=== PATIENT | male | born 1955 | race Caucasian/White ===

== ENCOUNTER 2018-11-23 08:10 | Emergency (ER) | payer SELFPAY ==
[2018-11-23] MEDS: OLANZapine ODT 10 MG TAB PO (08:15)
--- NOTE | 2018-11-23 08:18 | ED_ITS ---
HPI - Psych General Chief Complaint: Psychiatric Symptoms Stated Complaint: Mental Evaluation Time Seen by Provider: 11/23/18 08:14 Source: patient and police Mode of arrival: other (police) History of Present Illness HPI Narrative: This is a 63-year-old male comes to the emergency department with concern for psychosis. Patient comes with the police department. He is known to the ER as well as the police department. He is often strange in his affect but today is very different. He has very tangential thought. He was over by 1 the local school trying to direct traffic and then at 1 point was lying in the of road. He has not expressed any suicidal ideation to the police or myself he has a lot of difficulty answering questions and seems to be having exacerbation his mental health issues. Patient can tell me that he is very ramped up, at this time he has been cooperative with police although he did come in handcuffs. Patient has been redirectable so far but does not seem safe to make his own decisions at this time. Related Data Home Medications Medication Instructions Recorded Confirmed [MULTIVITAMIN] #0 04/10/11 GLUC OTOOLE DIPO CH/LARON OTOOLE/C/GISSELLE 1 cap PO QDAY #0 06/24/12 (Glucosamine-Chondroitin Capsul) glutamine [L-Glutamine] 500 mg PO QDAY #0 07/13/17 melatonin 3 mg PO HS #0 07/13/17 vitamin B complex [B 1 tab PO QDAY #0 07/13/17 Complex-Vitamin B12] Previous Rx's Medication Instructions Recorded NALTREXONE HCL (REVIA) 50 mg PO QDAY #30 tab 07/13/17 carvedilol [Coreg] 12.5 mg PO BID #60 tab 12/24/17 losartan [Cozaar] 50 mg PO QDAY #30 tab 12/24/17 pravastatin 40 mg PO HS #90 tab 02/15/18 bupropion HCl SR 150 mg tablet,12 150 mg PO BID #14 tab 08/05/18 hr sustained-release Allergies Allergy/AdvReac Type Severity Reaction Status Date / Time No Known Drug Allergies Allergy Verified 11/23/18 08:38 [facility] Surgical History Status post hernia repair Exam Narrative Exam Narrative: GENERAL: Alert and oriented x two, well-nourished, slightly disheveled male in moderate distress. HEENT: Head normocephalic, atraumatic, EOMI, pupils reactive, face symmetric, moist mucous membranes NECK: Supple, full range of motion CARDIOVASCULAR: Regular rate and rhythm without murmurs, rubs or gallops. RESPIRATORY: Breath sounds equal bilaterally, no wheezes rales or rhonchi. ABDOMEN: Soft, nontender. Normoactive bowel sounds all 4 quadrants. No guarding or rebound, rigidity, no mass : No CVA tenderness EXTREMITIES: Normal range of motion, no clubbing or edema. Neurovascularly intact NEUROLOGICAL: Cranial nerves II through XII grossly intact. Moving all extremities. Normal gait. No tremor. SKIN: Warm, dry, no petechiae, no rashes or lesions. PSYCH: Patient has very pressured speech, tangential. Initial Vital Signs Initial Vital Signs: Vital Signs Temperature 98.9 F 11/23/18 08:38 Pulse Rate 107 H 11/23/18 08:38 Respiratory Rate 22 11/23/18 08:38 Blood Pressure 169/102 H 11/23/18 08:38 Pulse Oximetry 99 11/23/18 08:38 Course Orders Ordered: ED Orders 11/23/18 17:10 Ictotest Urine Stat Urine Culture Stat Urine Drug Screen, Rapid Stat Urine Microscopic Stat 11/23/18 18:57 Urine Culture Stat Discontinued Medications Haloperidol (Haldol) 5 mg IM NOW ONE Stop: 11/23/18 08:54 Last Admin: 11/23/18 09:07 Dose: 5 mg Lorazepam (Ativan) 2 mg IM NOW ONE Stop: 11/23/18 08:54 Last Admin: 11/23/18 09:07 Dose: 2 mg Olanzapine (Zyprexa Zydis) 10 mg PO NOW ONE Stop: 11/23/18 08:15 Last Admin: 11/23/18 08:15 Dose: 10 mg Vital Signs - 8 hr 11/23/18 18:59 Respiratory Rate 13 MDM - Psych Lab Data Attestation: I reviewed the patient's lab results. Result diagrams: 11/23/18 Unknown 11/23/18 Unknown Lab Results 11/23/18 11/23/18 11/23/18 Range/Units 17:10 17:10 17:10 WBC (4.5-11.0) X10^3/uL RBC (4.5-5.9) X10^6/uL Hgb (13.5-17.5) g/dL Hct (41-53) % MCV (80-100) fL MCH (26-34) PG MCHC (30-36) % RDW (11.6-14.8) % Plt Count (150-400) X10^3/uL Neut % (Auto) (50-75) % Lymph % (Auto) (25-40) % Sebastian % (Auto) (3-14) % Eos % (Auto) (2-4) % Baso % (Auto) (0-2) % Neut # (Auto) (7402-1026) /uL Sodium (137-145) mmol/L Potassium (3.4-5.1) mmol/L Chloride (98-107) mmol/L Carbon Dioxide (22-32) mmol/L BUN (9-20) mg/dL Creatinine (0.66-1.25) mg/dL Estimated GFR (>60) mL/min BUN/Creatinine Ratio (6-22) Glucose (80-110) mg/dL Calcium (8.4-10.2) mg/dL Total Bilirubin (0.2-1.3) mg/dL AST (17-59) IU/L ALT (21-72) IU/L Alkaline Phosphatase (38-126) U/L Total Protein (6.3-8.2) g/dL Albumin (3.5-5.0) g/dL Globulin (1.7-4.1) g/dL Albumin/Globulin Ratio (1.0-2.8) TSH (0.47-4.68) uIU/mL Urine Ictotest Negative (Negative) Urine RBC None seen (0-5/HPF) Urine WBC 1-5/hpf (0-5/HPF) Ur Squamous Epith Cells 0-1 /hpf Calcium Oxalate Crystal Occasional H (None) Amorphous Sediment 2+ Urine Bacteria Few (2-10) H (None) Urine Mucus 2+ H (Negative) Ur Culture Indicated? Specimen cultured Micro UA Comment Not Reportable Urine Opiates Screen Negative (Negative) Ur Oxycodone Screen Negative (Negative) Urine Methadone Screen Negative (Negative) Ur Barbiturates Screen Negative (Negative) U Tricyclic Antidepress Negative (Negative) Ur Phencyclidine Scrn Negative (Negative) Ur Amphetamines Screen Negative (Negative) U Methamphetamines Scrn Negative (Negative) Ur MDMA Scrn (Ecstasy) Negative (Negative) U Benzodiazepines Scrn Positive H (Negative) Urine Cocaine Screen Negative (Negative) U Marijuana (THC) Screen Negative (Negative) Ethyl Alcohol mg/dL 11/23/18 11/23/18 11/23/18 Range/Units Unknown Unknown Unknown WBC 5.6 (4.5-11.0) X10^3/uL RBC 4.68 (4.5-5.9) X10^6/uL Hgb 13.9 (13.5-17.5) g/dL Hct 41.6 (41-53) % MCV 88.9 (80-100) fL MCH 29.7 (26-34) PG MCHC 33.4 (30-36) % RDW 13.9 (11.6-14.8) % Plt Count 240 (150-400) X10^3/uL Neut % (Auto) 73.0 (50-75) % Lymph % (Auto) 15.7 L (25-40) % Sebastian % (Auto) 9.6 (3-14) % Eos % (Auto) 0.8 L (2-4) % Baso % (Auto) 0.9 (0-2) % Neut # (Auto) 4100 (9273-9547) /uL Sodium 141 (137-145) mmol/L Potassium 3.9 (3.4-5.1) mmol/L Chloride 106 (98-107) mmol/L Carbon Dioxide 23 (22-32) mmol/L BUN 18 (9-20) mg/dL Creatinine 0.70 (0.66-1.25) mg/dL Estimated GFR > 60.0 (>60) mL/min BUN/Creatinine Ratio 25.7 H (6-22) Glucose 122 H (80-110) mg/dL Calcium 9.3 (8.4-10.2) mg/dL Total Bilirubin 0.7 (0.2-1.3) mg/dL AST 41 (17-59) IU/L ALT 43 (21-72) IU/L Alkaline Phosphatase 66 (38-126) U/L Total Protein 7.5 (6.3-8.2) g/dL Albumin 4.6 (3.5-5.0) g/dL Globulin 2.9 (1.7-4.1) g/dL Albumin/Globulin Ratio 1.6 (1.0-2.8) TSH 1.28 (0.47-4.68) uIU/mL Urine Ictotest (Negative) Urine RBC (0-5/HPF) Urine WBC (0-5/HPF) Ur Squamous Epith Cells Calcium Oxalate Crystal (None) Amorphous Sediment Urine Bacteria (None) Urine Mucus (Negative) Ur Culture Indicated? Micro UA Comment Urine Opiates Screen (Negative) Ur Oxycodone Screen (Negative) Urine Methadone Screen (Negative) Ur Barbiturates Screen (Negative) U Tricyclic Antidepress (Negative) Ur Phencyclidine Scrn (Negative) Ur Amphetamines Screen (Negative) U Methamphetamines Scrn (Negative) Ur MDMA Scrn (Ecstasy) (Negative) U Benzodiazepines Scrn (Negative) Urine Cocaine Screen (Negative) U Marijuana (THC) Screen (Negative) Ethyl Alcohol < 10 mg/dL Urine Dip Bedside Urine Glucose Negative Bedside Urine Bilirubin + 1 Bedside Urine Ketone ++ 40 Urine Specific Blevins 1.025 Bedside Urine Occult Blood - Negative Bedside Urine pH 6.5 Bedside Urine Protein + 30 Bedside Urine Urobilinogen 1+ 2mg Bedside Urine Nitrite - Negative Bedside Urine Leukocytes - Negative Esterase MDM Narrative Medical decision making narrative: Patient has a history of possible bipolar, he has very tangential speech. He is not making any suicidal threats. Patient has not made any aggressive over to his towards the staff but he was found lying in the street and is generally not able to make decisions that show that he is competent or able to keep himself safe at this time. Was given Zyprexa which after period of time was not particularly helpful and was then given Haldol and Ativan IM. Patient has been quite sleepy but awakens then. Patient is more awake around 5pm, his thoughts are more organized but he still appears to have some faheem or very tangential thought process. He seems to not understand exactly where he, he does not seem to be able to make appropriate decisions to maintain his personal safety. Urine shows benzo's but urine was collected several hours after administration of Ativan. Alcohol is negative. Lab work shows no major abnormalities. Patient has some bacteria but no nitrates or leukocyte esterase. Urine was sent for urine culture but my suspicion for UA causing altered mental status or delirium is very, very low. [facility] they are evaluating patient, I discussed I feel he needs detainment at this time. Patient signed out to Dr. Monterroso for final disposition. Discharge Plan Departure Prescriptions: No Action [MULTIVITAMIN] Qty: 0 RF: 0 GLUC OTOOLE DIPO CH/LARON OTOOLE/C/GISSELLE (Glucosamine-Chondroitin Capsul) 1 cap PO QDAY Qty: 0 RF: 0 melatonin 3 MG tablet 3 mg PO HS Qty: 0 RF: 0 glutamine [L-Glutamine] 500 MG capsule 500 mg PO QDAY Qty: 0 RF: 0 vitamin B complex [B Complex-Vitamin B12] 1 EACH tablet 1 tab PO QDAY Qty: 0 RF: 0 NALTREXONE HCL (REVIA) 50 mg PO QDAY Qty: 30 RF: 0 losartan [Cozaar] 50 MG tablet 50 mg PO QDAY Qty: 30 RF: 6 carvedilol [Coreg] 12.5 MG tablet 12.5 mg PO BID Qty: 60 RF: 6 pravastatin 40 MG tablet 40 mg PO HS Qty: 90 RF: 1 bupropion HCl [Wellbutrin SR] 150 mg tablet extended release 12 hr 150 mg PO BID Qty: 14 RF: 0
[2018-11-23 08:38] VITALS: BP 169/102; PULSE 107; RESP 22; TEMP 37.2; O2SAT 99; BMI 30.2
[2018-11-23 08:41] LABS: Add Manual Diff / Slide Review NO; Basophils Percent Auto 0.9 % (0-2); Eosinophils Percent Auto 0.8 % (2-4); Hematocrit 41.6 % (41-53); Hemoglobin 13.9 g/dL (13.5-17.5); Lymphocytes Percent Auto 15.7 % (25-40); Mean Corpuscular HGB Conc 33.4 % (30-36); Mean Corpuscular Hemoglobin 29.7 PG (26-34); Mean Corpuscular Volume 88.9 fL (80-100); Monocytes Percent Auto 9.6 % (3-14); Neutrophils Absolute Auto 4100 /uL (1500-7000); Platelet Count 240 X10^3/uL (150-400); Red Blood Cell Count 4.68 X10^6/uL (4.5-5.9); Red Cell Distribution Width 13.9 % (11.6-14.8); White Blood Cell Count 5.6 X10^3/uL (4.5-11.0)
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
[2018-11-23 08:53] LABS: Alanine Aminotransferase 43 IU/L (21-72); Albumin 4.6 g/dL (3.5-5.0); Albumin Globulin Ratio 1.6 (1.0-2.8); Alkaline Phosphatase 66 U/L (38-126); Aspartate Aminotransferase 41 IU/L (17-59); BUN Creatinine Ratio 25.7 (6-22); Bilirubin Total 0.7 mg/dL (0.2-1.3); Blood Urea Nitrogen 18 mg/dL (9-20); Calcium 9.3 mg/dL (8.4-10.2); Carbon Dioxide 23 mmol/L (22-32); Chloride 106 mmol/L (98-107); Estimated Glomerular Filt Rate > 60.0 mL/min (>60); Ethanol (ETOH) < 10 mg/dL; Globulin 2.9 g/dL (1.7-4.1); Glucose 122 mg/dL (80-110); HEMOLYSIS < 15 (0-50); Potassium 3.9 mmol/L (3.4-5.1); Sodium 141 mmol/L (137-145); Total Protein 7.5 g/dL (6.3-8.2)
[2018-11-23] MEDS: HALOPERIDOL 5 MG/ML VIAL IM (09:07)
[2018-11-23] MEDS: LORazepam 2 MG/ML SYRINGE IM (09:07)
--- NOTE | 2018-11-23 09:31 | PC.NURSE ---
0850: Talking about [place] people request a second language tutor. Also about how the immigrants came to [place]. 0855: Thinks things are going off under the gurney, is inspecting because [employer] requested that he search the gurney. 0900 Believes people should have their constitutional rights read to them even the dark skinned folks that built [place]. [employer] told him to pass the message to others. 0905: Talks about Germans and how they put things in our bodies. Talking/rambling in mumbles speaking the language between him and [employer]. The Germans are also vomiting stuff in us. They hold hands in dance with pokes of blood to unite each other. 0910: Teaching others the language from [employer] so he can communicate the messages that he is receiving. 0915: He plans to cover [place] with a bowl to make sure that everyone is safe and they are not hunted by others. Aspen bairon harper is what they will be singing on the islands. 0920: He believes that people are listening to everyone through is hearing aids. We need to be careful what information we give because they can hear it. 0925: Pt is asleep.
[2018-11-23 09:37] LABS: Thyroid Stimulating Hormone 1.28 uIU/mL (0.47-4.68)
[2018-11-23 10:45] VITALS: BP 108/67; PULSE 60; RESP 17; O2SAT 98
--- NOTE | 2018-11-23 17:00 | PC.NURSE ---
Patient is waking up. He is following commands. Door is open. He states he wants to sleep. Asked him to urinate, he states he cannot right now. Laid back down and fell asleep. Provider aware.
--- NOTE | 2018-11-23 17:13 | PC.NURSE ---
Patient awakening. He got up and gave a urine sample. Asking for food and water. Walking around room. Doctor notified.
[2018-11-23 17:17] LABS: RBC Urine None Seen (0-5/HPF)
[2018-11-23 17:26] LABS: Urine Tetrahydrocannabinol Negative (Negative)
[2018-11-23 17:27] LABS: Ictotest Urine Negative (Negative); Urine Amphetamines Negative (Negative); Urine Barbiturates Negative (Negative); Urine Benzodiazepines Positive (Negative); Urine Cocaine Negative (Negative); Urine MDMA Negative (Negative); Urine Methadone Negative (Negative); Urine Methamphetamines Negative (Negative); Urine Morphine/Opi cutoff 2000 Negative (Negative); Urine Oxycodone Negative (Negative); Urine Phencyclidine Negative (Negative); Urine Tricyclic Antidepressant Negative (Negative)
[2018-11-23 17:31] LABS: Squamous Epithelial Cell Urine 0-1 /HPF; WBC Urine 1-5/HPF (0-5/HPF)
--- NOTE | 2018-11-23 17:31 | PC.NURSE ---
Pt saying he wants to leave. Gave him a tray from dietary. He is sitting on stretcher eating food. Door is open.
[2018-11-23 17:32] LABS: Amorphous Sediment Urine 2+; Bacteria Urine Few (2-10); Calcium Oxalate Crystals Urine Occasional; Culture Indicated Urine Specimen Cultured; Mucus Urine 2+ (Negative)
--- NOTE | 2018-11-23 17:36 | PC.NURSE ---
Patient was brought a dinner tray and is sitting on side of bed eating
--- NOTE | 2018-11-23 17:56 | PC.NURSE ---
Patient resting on bed after eating dinner
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
--- NOTE | 2018-11-23 18:47 | PC.NURSE ---
Patient resting quietly on bed in room
[2018-11-23 18:59] VITALS: RESP 13
--- NOTE | 2018-11-23 18:59 | PC.NURSE ---
Patient refused vital signs
--- NOTE | 2018-11-23 20:09 | PC.NURSE ---
late entry: @ 1950 pt became verbally aggressive and yelling at [facility]. Pt threw his meal tray against the wall. Swearing at staff. Tray removed from room. I asked pt to stop swearing and yelling. He told me to 'get the f*ck out. More calm when noone is in the room. DCR aware and continues eval.
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
== END 2018-11-23 23:16 | disposition short-term general hospital (02) ==
PROVIDERS: Emergency Medicine; Emergency Provider Emergency Medicine; Family Provider Family Medicine
DX: F29 Unspecified psychosis not due to a substance or known physiological condition (principal)
CPT/HCPCS: 80053; 80305; 80320; 81003; 81015; 84443; 85025; 87086; 96372; 99285; J1630; J2060

== ENCOUNTER → 2019-11-29 08:01 | Outpatient (CLI) | payer OTHER, SELFPAY ==
[2019-11-29 09:37] LABS: Cholesterol 151 mg/dL (140-199); Glucose Promotional 91 mg/dL (80-110); HDL Cholesterol 46 mg/dL (40-60); LDL Cholesterol Calculated 85 mg/dL (<100); Triglycerides 99 mg/dL (35-150)
== END ==
PROVIDERS: Family Provider Family Medicine; PCP Family Medicine
DX: Z13.9 Encounter for screening, unspecified (principal)
CPT/HCPCS: 80061; 82947

== ENCOUNTER → 2020-01-23 07:25 | Outpatient (CLI) | payer OTHER, SELFPAY ==
[2020-01-23 07:52] LABS: Add Manual Diff / Slide Review NO; Basophils Absolute Auto 100 /uL (0-100); Basophils Percent Auto 1.3 % (0-2); Eosinophils Absolute Auto 200 /uL (0-450); Hematocrit 42.4 % (41-53); Hemoglobin 14.4 g/dL (13.5-17.5); Lymphocytes Absolute Auto 1000 /uL (1100-4500); Lymphocytes Percent Auto 20.3 % (25-40); Mean Corpuscular HGB Conc 34.1 % (30-36); Mean Corpuscular Hemoglobin 29.7 PG (26-34); Mean Corpuscular Volume 87.1 fL (80-100); Monocytes Absolute Auto 700 /uL (0-900); Monocytes Percent Auto 14.1 % (3-14); Neutrophils Absolute Auto 3100 /uL (1500-7000); Neutrophils Percent Auto 60.3 % (50-75); Platelet Count 251 X10^3/uL (150-400); Red Blood Cell Count 4.86 X10^6/uL (4.5-5.9); Red Cell Distribution Width 13.5 % (11.6-14.8); White Blood Cell Count 5.1 X10^3/uL (4.5-11.0)
== END ==
PROVIDERS: Family Provider Family Medicine; PCP Family Medicine; Referring Provider Family Medicine; Visit Provider Family Medicine
DX: I10 Essential (primary) hypertension (principal)
CPT/HCPCS: 36415; 84153; 84443; 85025

== ENCOUNTER → 2020-08-03 09:04 | Outpatient (CLI) | payer OTHER, SELFPAY ==
[2020-08-05 15:28] LABS: COVID19 Sendout Not Detected (Not Detect)
== END ==
PROVIDERS: Family Provider Family Medicine; PCP Family Medicine; Visit Provider Physician Assistant
DX: Z11.59 Encounter for screening for other viral diseases (principal)
CPT/HCPCS: 87635

== ENCOUNTER 2020-08-06 06:59 | Day surgery (SDC) | payer OTHER, SELFPAY ==
--- NOTE | 2020-08-06 | PATH_ITS ---
[facility] Accession Number: [id number] . 01 Material submitted: . PART A: gastrointestinal site - STOMACH BIOPSY PART B: esophagus - GE JUNCTION . 01 Clinical history: . SDC . 02 Diagnosis: A. Stomach, Biopsy: Antral mucosa with mild chronic gastritis. Negative for Helicobacter by immunohistochemistry. Negative for intestinal metaplasia. Negative for dysplasia and malignancy. . B. Gastroesophageal Junction, Biopsy: Columnar mucosa with no diagnostic abnormality. Negative for intestinal metaplasia by alcian blue stain. Negative for dysplasia and malignancy. [facility] 08/13/2020 1514 Local . 02 Electronically signed: . Stephanie Crane MD, Pathologist NPI- [id number] . 01 Gross description: . Part A: STOMACH BIOPSY: Received in formalin are 2 fragment(s) of rojas, soft tissue measuring 0.2 x 0.2 x 0.2 cm to 0.3 x 0.2 x 0.2 cm submitted entirely in 1 cassette(s) Part B: GE JUNCTION: Received in formalin are 4 fragment(s) of rojas, soft tissue measuring 0.1 x 0.1 x 0.1 cm to 0.3 x 0.1 x 0.1 cm submitted entirely in 1 cassette(s) /DEVIKA 08/07/2020 2358 Local . 02 Microscopic: . A. An immunohistochemical stain was performed to evaluate for Helicobacter organisms and is negative. The control stain showed appropriate reactivity. . B. An alcian blue stain was performed to evaluate for intestinal metaplasia and is negative. The control stain showed appropriate reactivity. . * This test was developed and its performance characteristics determined by [facility] [employer]. It has not been cleared or approved by the U.S. Food and Drug Administration. The FDA has determined that such clearance or approval is not necessary. This test is used for clinical purposes. It should not be regarded as investigational or for research. . 02 Pathologist provided ICD-10: Z12.11 . 02 CPT . 624069, 241552, X11547, 648038 Performed at: 01 [facility] [address] [id number] MD Kodi Echeverria MD Phone: [phone] Performed at: 02 [place] [id number] [place] [id number] MD Stephanie Crane MD Phone: [phone]
[2020-08-06] MEDS: LACTATED RINGERS 1,000 ML 42 ML IV (07:20)
[2020-08-06 07:24] VITALS: BP 120/77; PULSE 78; RESP 16; TEMP 36.2; O2SAT 98; BMI 22.0
[2020-08-06] MEDS: MINERAL OIL 1 EACH ENEMA PR (07:45)
--- NOTE | 2020-08-06 07:58 | SUR.PREOP ---
Pt arrived to [facility] on time, spent 15 minutes in BR changing, asked to try and go to the BR and not flush as pt unsure of what his output was, pt could not go. Dr. Macario made aware, asked for enema to be given. Enema given see EMAR. output after was cloudy yellow, with occasional yellow flecks. Pt refused ordered Acetamenophen, he dose not use tylenol due to him hearing it causes liver issues, pt not wanting further discussion on med.
--- NOTE | 2020-08-06 08:07 | PM.PREOP ---
Pre-operative Note COVID-19 COVID-19 status: Negative Result date/Date tested (Pos, Neg/Pending): 08/04/20 Interval Note History & Physical reviewed/Exam performed by Physician: Yes Changes to H&P: No
[2020-08-06] MEDS: CEFAZOLIN 2 GM/100 ML FROZ.PIGGY IV (08:51)
--- NOTE | 2020-08-06 09:09 | SUR.OPER ---
Supine on padded OR bed, head on pillow, arms secured on padded arm boards at <90 degrees abduction, legs uncrossed, safety belt at thigh, tape over blanket over lower legs for EGD and Left inguinal hernia repair. Supine as stated, but with out thigh safety belt and tape at lower legs for colonoscopy. Kamilah Bustamante RN supported legs during the procedure per Dr. Macario.
[2020-08-06] MEDS: BUPIVACAINE 0.5% (PF) VIAL 30 ML INJ (09:15)
[2020-08-06 10:17] VITALS: BP 147/104; PULSE 76; RESP 25; TEMP 37; O2SAT 95
[2020-08-06 10:22] VITALS: BP 136/100; PULSE 67; RESP 14; O2SAT 99
[2020-08-06 10:26] VITALS: BP 134/101; PULSE 65; RESP 10; O2SAT 98
--- NOTE | 2020-08-06 10:31 | SUR.PHASEI ---
Pt awoke shortly after arrival. Awake, talking loudly, sometimes inappropriately. Denies pain, nausea, or light-headedness. Drank juice, tolerated well.
--- NOTE | 2020-08-06 10:32 | P.OP.ENDO_ITS ---
Operative Date/Time/Diagnoses Date of procedure: 08/06/20 Time of procedure: 10:34 Pre-op diagnosis: History of Flood's esophagus. Due for screening colonoscopy. Having general anesthesia for an inguinal hernia. Thus as the patient has multiple significant comorbidities this will be done under general anesthesia in its entirety. Post-op diagnosis: same Procedure & Clinicians Study performed: Colonoscopy. EGD with cold biopsy Same procedure as scheduled: Yes Indications: Flood's esophagus. Overdue for surveillance. Overdue for s creening colonoscopy which was over 10 years ago. Surgeon: Jude Macario Procedure Notes SCOAP/Timeout: Performed Procedure in detail: The patient underwent general endotracheal anesthesia due to the fact that he has some emotional issues as well as medical ones and will have to have general anesthesia for an inguinal hernia repair. A bite block was inserted and the scope was advanced through it into the esophagus. The esophagus was unremarkable. GE junction was noted at 41 cm from the incisors. There was evidence of Flood's esophagus in that region.. The stomach insufflated well. There were no lesions seen in the body, or at the incisura. However there was some redness in the pyloric area and a flattening/thinning appearance of the mucosa The pyloric channel was widely patent. The duodenum was unremarkable to the 4th part. The scope was brought back into the stomach and retroflexed. The proximal stomach normal in appearance. Biopsies were taken of the reddened antrum. The scope was straightened and brought out through the esophagus again. Biopsies were taken at the GE junction. No other lesions were seen. The scope was removed and the patient tolerated the procedure well. Colonoscope was then inserted. Digital exam was unremarkable except for some visible hemorrhoids.. The scope was inserted and advanced through the rectum into the sigmoid, descending, transverse, and ascending colon. No lesions were seen.. The cecum was reached identified by the ileocecal valve and the appendiceal opening. The ileocecal valve was briefly cannulated. The terminal ileum was normal in appearance. The scope was gradually brought out. No Polyps were found. The scope ultimately was retroflexed in the rectum. The appearance was remarkable for internal hemorrhoids.. The scope was removed and the patient tolerated the procedure well. Scope withdrawal time: 7.75 minutes Sedation minutes: 0 (Done under general anesthesia) Findings: Flood's esophagus and gastritis (Possible.) Specimen(s): other (Gastric antrum biopsies and GE junction biopsies) Complications: none Post-procedure Recommendations: Colonscopy in 10 years and EGD in 3 years Follow up: as needed Disposition: PACU
--- NOTE | 2020-08-06 10:38 | SUR.PHASEI ---
Pt put in his hearing aids upon waking up
--- NOTE | 2020-08-06 10:42 | P.OP_ITS ---
Operative Date/Time/Diagnoses Date of procedure: 08/06/20 Time of procedure: 10:42 Pre-op diagnosis: Left inguinal hernia reducible Post-op diagnosis: same (Direct) Procedure & Clinicians Procedure: Repair of hernia with plug and patch technique Same procedure as scheduled: Yes Indications: Symptomatic left inguinal hernia Surgeon: Jude Macario Click Yes if Unassisted: Yes Anesthesia Type: General Operative Notes Findings: Large direct hernia. Closure Type: primary Specimen(s): none sent Prosthetic devices, grafts, tissues, transplants, or devices: Mesh Estimated Blood Loss (mL): 10 Blood products transfused: none Procedure in detail: The patient was placed supine on the operating room table and underwent general LMA anesthesia. He was prepped and draped in the usual fashion. A transverse incision was made overlying the left internal ring and carried down to the level of the external oblique. The external oblique was opened parallel with its fibers through the external ring. The cord structures were elevated. The cremaster was opened proximally and search made for an indirect sac. None was found. The floor was examined and was found to be quite weakened and bulging consistent with a direct hernia. The floor was opened 10 the preperitoneal fat reduced from it. A large plug was placed in the defect and tacked into place with interrupted at the bone suture. The attenuated floor a portion was removed and the floor was closed by suturing transversalis to the ileo pubic tract.. A patch was placed across the floor and tacked at the pubic tubercle, the posterior lamella of the anterior rectus sheath, the ilioinguinal ligament, and superior lateral to the cord. Sutures of 0 Tycron were used to secure the mesh. The external oblique was closed with a running 3 0 Vicryl. T he subcu was closed with interrupted 3 0 Vicryl. The skin was closed with a running 4 0 Vicryl subcuticular stitch and Steri-Strips. Dressing was applied, the patient was awakened, and the patient was taken to the recovery area in good condition. Local anesthetic was infiltrated at the beginning and end of the procedure. Complications: none Post-operative Condition: stable Disposition: PACU Plan for aftercare: Follow-up in the office
[2020-08-06 11:00] VITALS: BP 131/89; PULSE 66; RESP 18; TEMP 36.6; O2SAT 97
--- NOTE | 2020-08-06 14:17 | SUR.PHASEII ---
Late entry: Pt ready to go, friend called, available for picker / packer, assisted pt to dress, pt up to BR steady when up. Left unit in stable condition. Voiced an understanding of d/c instructions.
--- NOTE | 2020-08-06 17:11 | SUR.OPER ---
Mesh implant: Lot [id number] REF #[id number] EXP DATE 10/13/24 BARD MESH PERFIX PLUG
== END 2020-08-06 11:15 | disposition home or self-care (01) ==
PROVIDERS: Family Provider Family Medicine; PCP Family Medicine; Referring Provider Specialist; Visit Provider Specialist
PROC: 0DJ08ZZ Inspection of Upper Intestinal Tract, Via Natural or Artificial Opening Endoscopic (ICD-10-PCS; CPT 43235; principal; 2020-08-06 07:45)
PROC: 0DJD8ZZ Inspection of Lower Intestinal Tract, Via Natural or Artificial Opening Endoscopic (ICD-10-PCS; CPT 45378; 2020-08-06 07:45)
PROC: (CPT 49505; 2020-08-06 07:45)
DX: Z12.11 Encounter for screening for malignant neoplasm of colon (principal); K40.90 Unilateral inguinal hernia, without obstruction or gangrene, not specified as recurrent; I25.10 Atherosclerotic heart disease of native coronary artery without angina pectoris; E78.5 Hyperlipidemia, unspecified; I10 Essential (primary) hypertension; K22.70 Barrett's esophagus without dysplasia
CPT/HCPCS: 49505; 43239; 45378; C1781; J0330; J0690; J1100; J1885; J2250; J2405; J2704; J3010

== ENCOUNTER 2020-11-24 23:49 | Emergency (ER) | payer OTHER, SELFPAY ==
--- NOTE | 2020-11-25 00:04 | ED_ITS ---
HPI - Extremity Problem General Chief complaint: Extremity Problem,Nontraumatic Stated complaint: Right leg pain x1 day Time Seen by Provider: 11/24/20 23:50 Source: patient Mode of arrival: Ambulatory Limitations: no limitations History of Present Illness HPI Narrative: 65-year-old male, former smoker with history of coronary artery disease presents by himself with a chief complaint of very brief episodes of sharp ?lightning like ?episodes of pain in his right posterior knee over the course of the day. He states that he has had multiple very brief episodes of sharp pain that last a fraction of his 2nd. He states there is no obvious provocation, palliation or radiation of this discomfort. He denies any obvious injury or history of the same. He denies any fever, chills nor nausea or vomiting. He states that he rode his bike rather vigorously yesterday in lots of when but otherwise has been in his normal level of activity, diet and other. He denies recent travel, injury, history of clot or cancer MD Complaint: extremity pain Onset (ago): hour(s) Pain Consistency: intermittent and now resolved Location: right and lower extremity Severity scale (1-10): 5 Quality: sharp Radiation: none Relieving factors: nothing Exacerbating factors: nothing Associated symptoms: denies other symptoms Related Data Home Medications Medication Instructions Recorded Confirmed melatonin 3 mg PO HS #0 07/13/17 08/28/20 Previous Rx's Medication Instructions Recorded bupropion HCl 100 mg tablet,12 hr 100 mg PO BID #180 each 06/13/20 sustained-release oxycodone-acetaminophen [Percocet] See Rx Instructions .ROUTE 08/06/20 .COMPLEX PRN #14 tab bupropion HCl 150 mg 24 hr tablet, 150 mg PO QAM #90 tab 08/14/20 extended release carvedilol 12.5 mg tablet 12.5 mg PO BID #180 tab 08/14/20 losartan 50 mg tablet 50 mg PO QDAY #90 tab 08/14/20 omeprazole 20 mg capsule,delayed 20 mg PO DAILY #90 cap 08/14/20 release simvastatin 40 mg tablet 40 mg PO DAILY #90 tab 08/14/20 Allergies Allergy/AdvReac Type Severity Reaction Status Date / Time No Known Drug Allergies Allergy Verified 08/28/20 15:05 Review of Systems Constitutional Constitutional: Denies chills, Denies fatigue, Denies fever(s), Denies frequent falls, Denies lethargy and Denies weakness Eyes Eyes: Denies change in vision, Denies eye discharge, Denies irritation and Denies loss of vision ENT Ears, Nose, Mouth, and Throat: Denies change in voice, Denies dizziness, Denies neck pain, Denies sore throat and Denies throat swelling Cardiovascular Cardiovascular: Denies chest pain, Denies irregular heart rhythm, Denies lightheadedness, Denies palpitations, Denies dyspnea, Denies dyspnea on exertion and Denies orthopnea Respiratory Respiratory: Denies cough, Denies dyspnea, Denies dyspnea on exertion and Denies wheezing Gastrointestinal Gastrointestinal: Denies abdominal pain, Denies change in bowel habits, Denies diarrhea, Denies nausea and Denies vomiting Musculoskeletal Musculoskeletal: Denies neck pain and Denies numbness Comments: Right calf pain Integumentary/Breasts Skin/Breast: Denies pruritus, Denies erythema, Denies rash and Denies wounds Neurologic Neurologic: Denies behavioral changes, Denies confusion, Denies dizziness, Denies frequent falls, Denies loss of vision, Denies numbness and Denies weakness Psychiatric Psychiatric: Denies anxiety, Denies behavioral changes, Denies confusion, Denies depression, Denies homicidal ideation and Denies suicidal ideation Endocrine Endocrine: Denies fatigue, Denies flushing and Denies palpitations Hematologic/Lymphatic Hematologic/Lymphatic: Denies easy bruising Allergic/Immunologic Allergic/Immunologic: Denies urticaria, Denies throat swelling and Denies wheezing Patient History Medical History Flood esophagus Coronary artery disease Depression Hyperlipidemia Hypertension Right inguinal hernia Well adult Surgical History Status post hernia repair Family History Brother Hypertension Social History household members: friend(s) Smoking Status: Former smoker alcohol intake: former substance use type: does not use Smoking Status: Former smoker Substance Use Type: does not use Exam Narrative Exam Narrative: GENERAL: [65] year old patient appears stated age. Well- nourished, well-developed patient, in mild distress. Hard of hearing HEAD: Atraumatic. Normocephalic. EYES: Pupils equal round and reactive. Extraocular motions intact. No scleral icterus. No injection or drainage. ENT: Nose without bleeding, purulent drainage. Throat without erythema, tonsillar hypertrophy or exudate. Airway patent. NECK: Trachea midline. Non tender CARDIOVASCULAR: Regular rate and rhythm without murmurs, gallops, or rubs. RESPIRATORY: Clear to auscultation. Breath sounds equal bilaterally. No wheezes, rales, or rhonchi. GASTROINTESTINAL: Abdomen soft, non-tender, nondistended. EXTREMITIES: No edema or joint tenderness. No erythema, warmth, swelling or reproducible pain. Sensation and cap refill intact BACK: Nontender without deformity or crepitance. No flank tenderness. NEURO: AOx3. SKIN: No rash or erythema of visible areas Initial Vital Signs Initial Vital Signs: Vital Signs Temperature 98 F 11/25/20 00:24 Pulse Rate 73 11/25/20 00:24 Respiratory Rate 16 11/25/20 00:24 Blood Pressure 166/89 H 11/25/20 00:24 Pulse Oximetry 96 11/25/20 00:24 Course Orders Ordered: ED Orders 11/25/20 00:20 Basic Metabolic Panel Stat Complete Blood Count AUTO DIFF Stat Creatine Kinase Stat D Dimer Stat Magnesium Stat Discontinued Medications Cyclobenzaprine HCl (Cyclobenzaprine 10 Mg Prepack) 1 bottle MIS SEEINSTR ONE Stop: 11/25/20 02:01 Last Admin: 11/25/20 02:03 Dose: 1 bottle Documented by: KGNAINA Vital Signs Vital signs: Vital Signs - 8 hr 11/25/20 00:24 11/25/20 01:58 Temperature 98 F Pulse Rate 73 68 Respiratory Rate 16 16 Blood Pressure 166/89 H 136/93 H Pulse Oximetry 96 99 MDM - Extremity (Nontraumatic) Lab Data Result diagrams: 11/25/20 00:20 11/25/20 00:20 Labs: Lab Results 11/25/20 11/25/20 11/25/20 Range/Units 00:20 00:20 00:20 WBC 4.7 (4.5-11.0) X10^3/uL RBC 4.12 L (4.5-5.9) X10^6/uL Hgb 12.9 L (13.5-17.5) g/dL Hct 38.3 L (41-53) % MCV 92.9 (80-100) fL MCH 31.4 (26-34) PG MCHC 33.8 (30-36) % RDW 13.6 (11.6-14.8) % Plt Count 186 (150-400) X10^3/uL Neut % (Auto) 58.0 (50-75) % Lymph % (Auto) 23.4 L (25-40) % [place] % (Auto) 14.4 H (3-14) % Eos % (Auto) 2.9 (2-4) % Baso % (Auto) 1.3 (0-2) % Neut # (Auto) 2700 (4313-0842) /uL Lymph # (Auto) 1100 (6145-4200) /uL [place] # (Auto) 700 (0-900) /uL Eos # (Auto) 100 (0-450) /uL Baso # (Auto) 100 (0-100) /uL D-Dimer < 200 (<230) ng/mL Sodium 134 L (137-145) mmol/L Potassium 4.1 (3.4-5.1) mmol/L Chloride 104 (98-107) mmol/L Carbon Dioxide 29 (22-32) mmol/L BUN 27 H (9-20) mg/dL Creatinine 0.90 (0.66-1.25) mg/dL Estimated GFR > 60.0 (>60) mL/min BUN/Creatinine Ratio 30.0 H (6-22) Glucose 93 (80-110) mg/dL Calcium 9.5 (8.4-10.2) mg/dL Magnesium (1.6-2.3) mg/dL Total Creatine Kinase 72 (55-170) U/L 11/25/20 Range/Units 00:20 WBC (4.5-11.0) X10^3/uL RBC (4.5-5.9) X10^6/uL Hgb (13.5-17.5) g/dL Hct (41-53) % MCV (80-100) fL MCH (26-34) PG MCHC (30-36) % RDW (11.6-14.8) % Plt Count (150-400) X10^3/uL Neut % (Auto) (50-75) % Lymph % (Auto) (25-40) % [place] % (Auto) (3-14) % Eos % (Auto) (2-4) % Baso % (Auto) (0-2) % Neut # (Auto) (0262-2344) /uL Lymph # (Auto) (8594-0496) /uL [place] # (Auto) (0-900) /uL Eos # (Auto) (0-450) /uL Baso # (Auto) (0-100) /uL D-Dimer (<230) ng/mL Sodium (137-145) mmol/L Potassium (3.4-5.1) mmol/L Chloride (98-107) mmol/L Carbon Dioxide (22-32) mmol/L BUN (9-20) mg/dL Creatinine (0.66-1.25) mg/dL Estimated GFR (>60) mL/min BUN/Creatinine Ratio (6-22) Glucose (80-110) mg/dL Calcium (8.4-10.2) mg/dL Magnesium 2.2 (1.6-2.3) mg/dL Total Creatine Kinase (55-170) U/L MDM Narrative Medical decision making narrative: Multiple etiologies for patient's symptoms considered including: [DVT versus electrolyte abnormality versus rhabdo versus cellulitis versus other] Patient's symptoms improved over duration of stay with above-stated therapies. Findings and discharge diagnosis discussed with patient/family followed by verbalization of understanding Return precautions discussed with patient/family whom verbalize understanding. Discharge Plan Departure Patient Disposition: Home Clinical Impression: Acute leg pain Qualifiers: Laterality: right Qualified Code(s): M79.604 - Pain in right leg Instructions: DI for Leg Pain Activity Restrictions/Additional Instructions: *You have been diagnosed with [acute right leg pain. Your story and exam are consistent with possibly a muscle spasm which may have been exacerbated by her long bike ride. The labs and exam would suggest very low likelihood of a blood clot or infection] *What to do: *Take medications as directed *Follow up with your primary care provider in 2-3 days, call for an appointment. Let them know you were seen in the Emergency Department and that we ask that you be seen in follow up *Return to ER if you should have any new, worsening or concerning symptoms Prescriptions: No Action melatonin 3 MG tablet 3 mg PO HS Qty: 0 RF: 0 bupropion HCl 100 mg tablet sustained-release 12 hr 100 mg PO BID Qty: 180 RF: 0 bupropion HCl 150 mg tablet extended release 24 hr 150 mg PO QAM Qty: 90 RF: 1 carvedilol [Coreg] 12.5 mg tablet 12.5 mg PO BID Qty: 180 RF: 1 losartan [Cozaar] 50 mg tablet 50 mg PO QDAY Qty: 90 RF: 1 simvastatin 40 mg tablet 40 mg PO DAILY Qty: 90 RF: 1 omeprazole 20 mg capsule,delayed release(DR/EC) 20 mg PO DAILY Qty: 90 RF: 1 oxycodone-acetaminophen [Percocet] 5-325 mg tablet See Rx Instructions .ROUTE .COMPLEX PRN (Reason: painful procedure) Qty: 14 RF: 0 Referrals: Johann Hess DO [Primary Care Provider] -
[2020-11-25 00:24] VITALS: BP 166/89; PULSE 73; RESP 16; TEMP 36.6; O2SAT 96; BMI 22.1
[2020-11-25 00:29] LABS: Add Manual Diff / Slide Review NO; Basophils Absolute Auto 100 /uL (0-100); Basophils Percent Auto 1.3 % (0-2); Eosinophils Absolute Auto 100 /uL (0-450); Eosinophils Percent Auto 2.9 % (2-4); Hematocrit 38.3 % (41-53); Hemoglobin 12.9 g/dL (13.5-17.5); Lymphocytes Absolute Auto 1100 /uL (1100-4500); Lymphocytes Percent Auto 23.4 % (25-40); Mean Corpuscular HGB Conc 33.8 % (30-36); Mean Corpuscular Hemoglobin 31.4 PG (26-34); Mean Corpuscular Volume 92.9 fL (80-100); Monocytes Absolute Auto 700 /uL (0-900); Monocytes Percent Auto 14.4 % (3-14); Neutrophils Absolute Auto 2700 /uL (1500-7000); Platelet Count 186 X10^3/uL (150-400); Red Blood Cell Count 4.12 X10^6/uL (4.5-5.9); Red Cell Distribution Width 13.6 % (11.6-14.8); White Blood Cell Count 4.7 X10^3/uL (4.5-11.0)
[2020-11-25 00:41] LABS: Blood Urea Nitrogen 27 mg/dL (9-20); Calcium 9.5 mg/dL (8.4-10.2); Carbon Dioxide 29 mmol/L (22-32); Chloride 104 mmol/L (98-107); Creatine Kinase 72 U/L (55-170); D Dimer < 200 ng/mL (<230); Estimated Glomerular Filt Rate > 60.0 mL/min (>60); Glucose 93 mg/dL (80-110); HEMOLYSIS < 15 (0-50); Potassium 4.1 mmol/L (3.4-5.1); Sodium 134 mmol/L (137-145)
[2020-11-25 00:42] LABS: Magnesium 2.2 mg/dL (1.6-2.3)
[2020-11-25 01:58] VITALS: BP 136/93; PULSE 68; RESP 16; O2SAT 99
[2020-11-25] MEDS: CYCLOBENZAPRINE 10 MG PREPACK 1 BOTTLE MISC (02:03)
== END 2020-11-25 02:05 | disposition home or self-care (01) ==
PROVIDERS: Emergency Provider Emergency Medicine; Family Provider Family Medicine; PCP Family Medicine
DX: M79.604 Pain in right leg (principal); I25.10 Atherosclerotic heart disease of native coronary artery without angina pectoris; E78.5 Hyperlipidemia, unspecified; I10 Essential (primary) hypertension
CPT/HCPCS: 36415; 80048; 82550; 83735; 85025; 85379; 99283

== ENCOUNTER → 2021-02-13 09:38 | Outpatient (CLI) | payer OTHER, SELFPAY ==
[2021-02-13] MEDS: COVID-19 VACC #1, MRNA(MOD) 100 MCG/0.5 ML VIAL IM (09:49)
== END ==
PROVIDERS: Family Provider Family Medicine; PCP Family Medicine; Visit Provider Internal Medicine
DX: Z23 Encounter for immunization (principal)
CPT/HCPCS: 0011A; 91301

== ENCOUNTER → 2021-02-19 10:13 | Outpatient (CLI) | payer OTHER, SELFPAY | PROVIDERS: Family Provider Family Medicine; PCP Family Medicine; Referring Provider Family Medicine; Visit Provider Family Medicine | DX: Z00.00 Encounter for general adult medical examination without abnormal findings (principal) | CPT/HCPCS: 36415; 86765 ==

== ENCOUNTER → 2021-03-13 09:39 | Outpatient (CLI) | payer OTHER, SELFPAY ==
[2021-03-13] MEDS: COVID-19 VACC #2, MRNA(MOD) 100 MCG/0.5 ML VIAL IM (09:47)
== END ==
PROVIDERS: Family Provider Family Medicine; PCP Family Medicine; Visit Provider Internal Medicine
DX: Z23 Encounter for immunization (principal)
CPT/HCPCS: 0012A; 91301

== ENCOUNTER 2021-08-30 12:18 | Emergency (ER) | payer OTHER, SELFPAY ==
[2021-08-30 12:41] VITALS: BP 137/95; PULSE 130; RESP 16; TEMP 36.4; O2SAT 97; BMI 21.5
[2021-08-30 13:13] LABS: Add Manual Diff / Slide Review NO; Basophils Absolute Auto 100 /uL (0-100); Eosinophils Absolute Auto 0 /uL (0-450); Eosinophils Percent Auto 0.4 % (2-4); Hematocrit 40.3 % (41-53); Hemoglobin 13.5 g/dL (13.5-17.5); Lymphocytes Absolute Auto 800 /uL (1100-4500); Lymphocytes Percent Auto 11.6 % (25-40); Mean Corpuscular HGB Conc 33.5 % (30-36); Mean Corpuscular Volume 92.7 fL (80-100); Monocytes Absolute Auto 700 /uL (0-900); Monocytes Percent Auto 10.2 % (3-14); Neutrophils Absolute Auto 5100 /uL (1500-7000); Neutrophils Percent Auto 76.8 % (50-75); Platelet Count 207 X10^3/uL (150-400); Red Blood Cell Count 4.34 X10^6/uL (4.5-5.9); Red Cell Distribution Width 14.2 % (11.6-14.8); White Blood Cell Count 6.6 X10^3/uL (4.5-11.0)
[2021-08-30 13:29] LABS: Acetaminophen < 10 ug/mL (10-30); Alanine Aminotransferase 37 IU/L (<50); Albumin Globulin Ratio 1.7 (1.0-2.8); Alkaline Phosphatase 80 U/L (38-126); Aspartate Aminotransferase 51 IU/L (17-59); BUN Creatinine Ratio 32.5 (6-22); Bilirubin Total 1.3 mg/dL (0.2-1.3); Blood Urea Nitrogen 37 mg/dL (9-20); Calcium 10.5 mg/dL (8.4-10.2); Carbon Dioxide 24 mmol/L (22-32); Chloride 100 mmol/L (98-107); Estimated Glomerular Filt Rate > 60.0 mL/min (>60); Ethanol (ETOH) < 10 mg/dL; Glucose 141 mg/dL (80-110); HEMOLYSIS < 15 (0-50); Potassium 3.8 mmol/L (3.4-5.1); Salicylate < 1.0 mg/dL (<20); Sodium 138 mmol/L (137-145)
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
[2021-08-30 14:50] LABS: Free T4, Direct Thyroxine 1.55 ng/dL (0.78-2.19)
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
--- NOTE | 2021-08-30 15:44 | PC.NURSE ---
FIELD RECORDER is speaking with patient. Patient is very hard to predict how he is going to treat staff or himself.
--- NOTE | 2021-08-30 15:51 | PC.NURSE ---
Patient is currently sitting alone in a chair and talking by himself.
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
[2021-08-30 16:09] LABS: UR Morphine/Opiate cutoff 300 Negative (Negative); Ur Creatinine Normal (Normal); Ur Specific Gravity Normal (Normal); Urine Amphetamines Negative (Negative); Urine Barbiturates Negative (Negative); Urine Benzodiazepines Negative (Negative); Urine Cocaine Negative (Negative); Urine MDMA Negative (Negative); Urine Methadone Negative (Negative); Urine Methamphetamines Negative (Negative); Urine Oxycodone Negative (Negative); Urine Phencyclidine Negative (Negative); Urine Tetrahydrocannabinol Negative (Negative); Urine Tricyclic Antidepressant Negative (Negative); Urine pH Normal (Normal)
[2021-08-30 16:17] LABS: COVID19 - ADMIT (NP swab/PCR) Negative (Negative)
--- NOTE | 2021-08-30 16:27 | CM.SWNOTE ---
SHIPPING CHECKER Assessment SHIPPING CHECKER - Publisher Assistant Assessment SHIPPING CHECKER/Publisher Assistant Assessment Time Spent with Patient Start date 08/30/21 Visit Start Time 16:30 End date 08/30/21 Visit End Time 16:50 Total time Care Management spent on 20 patient visit-in minutes Mental Health Screening Include Onset, Duration, Intensity Presenting Problem Patient presents to the ED in a manic state of psychosis. Patient presents with concern for his safety, referencing confrontations with law enforcement, wanting to teo the hospital and stating knowledge on his rights. Patient presents conversing with himself, in an altered state. Precipitating Event(s) Patient endorses I am a genius, I know all the answers . Patient endorses he relapsed on ETOH recently and has participated in AA recently. Patient Strengths Patient presented to ED voluntarily. Current Behavioral Health Provider(s) None reported Include Facility, Provider, Ph. # Psych. Hx Mental Health and Chemical Patient has hx of Bipolar I Dependency Disorder, Acute Psychosis, Alcohol Use Disorder and Depression. Patient endorses recent ETOH use and denies other substances. Family Hx of Behavioral Abuse None reported Psychiatric Hospitalizations (date(s)/ [facility] - 11/23/2018 location) Psychosocial information & Support Patient is 65 y/o male who Systems resides in [place]. Patient endorses that he has a roommate who uses substances. Patient cannot identify supports due to his current manic state. Patient has no family/friends listed in medical record. School/Work Unemployed. 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 Legal Concerns Legal Matters - Outstanding Issues None reported Mental Status Orientation (Person/Place/Time) Alert to self and person, not place, and time. Stated Mood upset about covid test Affect (Congruent with Mood?) Euphoric, labile, congruent with mood Thought Content - Specify/Describe Patient presents with Obsessions, Delusions, Hallucinations obsessions and paranoia regarding suing the hospital and contacting the police. Patient endorses visual and auditory hallucinations but does not provide details. Patient presents with delusions and paranoia that people need to be arrested and concerns for the law enforcement, the judicial system and local politicians. Patient speaks only about his life and career history as if it was in present day. Thought Processes (Uwijaor-Vinuxept-Hvzo Tansgential, disorganized Fwiujefl-Dqmvyshs-Sfurspzzbv- Nlumzwudmfxkux-Snlxben-Dafmvlpcpqnm- Thought Blocking) Speech (Uufuyx-Qwxl-Taguvkv-Rapid-Soft- Pressured, Loquacious, rapid Loud-Pressured) Motor (Yxbkuj-Luqdodtfn-Nfip-Other) Excessive, patient has difficulty sitting still and prefers to stand Insight (Hsha-Sdih-Dqzu/Limited) poor/limited Judgement (Phje-Gkvr-Rfpb/Limited) poor/limited Impulse Control (Adequate-Impaired) impaired Memory (Lqvpbtfqm-Udrsap-Mrufen, impaired, not formally Impaired-Intact) assessed. Concentration (Intact-Impaired) intact Attention (Intact-Impaired) intact Behavior (Appropriate-Inappropriate) inappropriate due to his elevated volume of speaking. Additional Comment Patient able to be redirected and cooperative. Patient presents dressed in dress pants, shirt, sweater vest and tie. Risk Assessment Suicidal Ideation (Plan) No Homicidal Ideation (Plan) No Intervention Intervention SHIPPING CHECKER enters room to meet with patient. Patient presents in manic and delusional state, elevated in discussing concern for law enforcement threatening his life the hospital, elected officials and concern for people that need to be arrested. Patient is fixated on contacting the police. Patient is cooperative and communicative when given the listened to, responding well to socialization and conversation with nacho/JOSE. Patient continues to ask if he can leave so he can go to the police station but patient can be redirected. Patient perseverates on his covid testing and that he knows his rights. Patient is agreeable to stay at the hospital while being evaluated. It is the opinion of this SHIPPING CHECKER that patient is gravely disabled and appropriate for inpatient hospitalization. Due to patient's current manic state it is the opinion of this SHIPPING CHECKER that patient is not an appropriate candidate for voluntary inpatient hospitalization and patient is in need of DCR evaluation for inpatient admission. SHIPPING CHECKER reviews the above with ED provider Dr. Saavedra who indicates agreement and understanding. Plan RA Plan SHIPPING CHECKER to dispatch DCR when patient is medically clear. GILBERTO Pack
--- NOTE | 2021-08-30 17:23 | PC.NURSE ---
I've been sitting with this patient and letting him talk with me about anything he wants. It's been very hard to have a straight conversation with him. His topics he talks about would change very rapidly and then sometimes go back to a topic he was talking about minutes ago. TOPICS: guns, money, emergency management coordinator, killing people, shooting people, law school, his past, being a alcoholic, calling people by names gays, homos, fags, queers, neigros, mexicans he has a super high IQ, he's been in [employer], QUOTES: born criminals - best candy cutter machine, emergency management coordinator, doctors doesn't speak [place].. give some free classes sun, the robert, the truth I'm going to teo people about covid I'm not a pot head, I'm a alcoholic We did remove a small pocket knife, jackets, house phone 17:40 patient used his phone to call someone, unknown person. We are going him dinner to eat. Edmar? has his guns, patient can get his guns back in a week, or even tomorrow if he wants... ( he then winked at me) When staff and myself didn't give him what he wanted because he poised a danger to himself or others, he threaded to teo us, call the candy cutter machine
--- NOTE | 2021-08-30 18:58 | PC.NURSE ---
Marking Clerk has just arrived to speak with the patient
--- NOTE | 2021-08-30 19:07 | PC.NURSE ---
DCR in with patient
[2021-08-30 19:49] VITALS: BP 149/97; PULSE 111; O2SAT 100
--- NOTE | 2021-08-31 00:30 | PC.NURSE ---
Pt had come back to hospital with some friends. states he tore his house apart looking for his medication. Informed the provider. Provider gave a script for ativan. Friends able to convince pt to go home with them after script given.
== END 2021-08-30 19:56 | disposition home or self-care (01) ==
PROVIDERS: Emergency Medicine; Emergency Provider Emergency Medicine; Family Provider Family Medicine; PCP Family Medicine
DX: F30.2 Manic episode, severe with psychotic symptoms (principal); F23 Brief psychotic disorder; Z20.822 Contact with and (suspected) exposure to COVID-19
CPT/HCPCS: 36415; 80053; 80305; 80320; 80329; 81003; 84439; 84443; 85025; 87635; 99284; C9803; G0480

== ENCOUNTER 2021-11-15 12:10 | Emergency (ER) | payer OTHER, SELFPAY ==
[2021-11-15] VITALS (7 sets, daily range): BP systolic 129–188; BP diastolic 77–127; PULSE 60–127; RESP 17–26; TEMP 37.7; O2SAT 98–100
--- NOTE | 2021-11-15 12:23 | ED.PSYCH ---
HPI - Psych <KIM Meredith - Last Filed: 11/15/21 20:34> General Chief Complaint: Psychiatric Symptoms Stated Complaint: Bipolar / Manic Time Seen by Provider: 11/15/21 12:22 Source: EMS Mode of arrival: EMS History of Present Illness HPI Narrative: 65-year-old male presents to the emergency department via EMS talking gibberish, highly agitated, EMS was called to the house because PT was trashing his house. There was a handgun and rifle near the door in plain view. Patient is unable to cooperate with an exam or answer any questions. He has continuous speech that is nonsensical, he does not have any signs or symptoms of trauma, he does have a history of bipolar and manic episodes. Patient denies intent to harm others, denies intent to harm self. Four knives were found on patient after arrival to emergency department, his clothing was removed, patient is unsafe to care for in this manic state and will be a DCR case. Janett from social work is at patient's bedside. He now has a sitter, medication was held in order to meet with psychiatrist without being sedated. Related Data Home Medications Medication Instructions Recorded Confirmed melatonin 3 mg tablet 3 mg PO HS #0 07/13/17 11/04/21 Previous Rx's Medication Instructions Recorded lorazepam 1 mg tablet (Ativan) 1 mg PO BID PRN #10 tab 08/31/21 bupropion HCl 100 mg tablet,12 hr 100 mg PO BID #180 tab 11/04/21 sustained-release carvedilol 12.5 mg tablet (Coreg) 12.5 mg PO BID #180 tab 11/04/21 divalproex 250 mg tablet,delayed 250 mg PO DAILY #30 tab 11/04/21 release losartan 50 mg tablet (Cozaar) 50 mg PO QDAY #90 tab 11/04/21 omeprazole 20 mg capsule,delayed 20 mg PO DAILY #90 cap 11/04/21 release simvastatin 40 mg tablet 40 mg PO DAILY #90 tab 11/04/21 Allergies Allergy/AdvReac Type Severity Reaction Status Date / Time No Known Drug Allergies Allergy Verified 08/30/21 12:41 Review of Systems <KIM Meredith - Last Filed: 11/15/21 20:34> Review of Systems Narrative: Patient has no complaints, however mentation is impaired, patient in a manic episode ROS Unobtainable: Unobtainable due to mental condition Patient History <KIM Meredith - Last Filed: 11/15/21 20:34> Medical History Alcohol use disorder Flood esophagus Bipolar 1 disorder Coronary artery disease Depression Hyperlipidemia Hypertension Preventative health care Right inguinal hernia Well adult Surgical History Status post hernia repair Family History Brother Hypertension Social History household members: friend(s) Smoking Status: Former smoker alcohol intake: former substance use type: does not use Smoking Status: Former smoker alcohol intake frequency: a few times a week Substance Use Type: does not use Exam <KIM Meredith - Last Filed: 11/15/21 20:34> Narrative Exam Narrative: Independently reviewed vitals signs and nursing notes. General: Awake, alert, nontoxic, no cardiorespiratory distress, rambling nonsense Head/Neck: Atraumatic, neck full range of motion Eyes: EOMI, conjunctiva normal Nose: nares patent, no rhinorrhea Mouth/Throat: moist mucus membranes, no oral lesions Cardio: Regular rate and rhythm, no peripheral edema Respiratory: respirations unlabored without wheezing, stridor, or rales. No retractions. GI: Abdomen soft, nontender MSK: Moves all extremities, neurovascularly intact Skin: Normal capillary refill, no rash Neuro: Rambling speech, manic, not threatening or attempting to harm anyone, does not follow commands, able to stand with steady gait Initial Vital Signs Initial Vital Signs: Vital Signs Temperature 99.9 F H 11/15/21 12:26 Pulse Rate 127 H 11/15/21 12:26 Respiratory Rate 26 H 11/15/21 12:26 Blood Pressure 188/127 H 11/15/21 12:26 Pulse Oximetry 100 11/15/21 12:26 <Sushila Valle DO - Last Filed: 11/17/21 14:51> Initial Vital Signs Initial Vital Signs: Vital Signs Temperature 99.9 F H 11/15/21 12:26 Pulse Rate 127 H 11/15/21 12:26 Respiratory Rate 26 H 11/15/21 12:26 Blood Pressure 188/127 H 11/15/21 12:26 Pulse Oximetry 100 11/15/21 12:26 Course <KIM Meredith - Last Filed: 11/15/21 20:34> Orders Ordered: Discontinued Medications Diphenhydramine HCl (Diphenhydramine 50 Mg/Ml Vial) 50 mg IM NOW ONE Stop: 11/15/21 12:31 Last Admin: 11/15/21 15:45 Dose: 50 mg Documented by: MARICARMEN Haloperidol (Haloperidol 5 Mg/Ml Vial) 5 mg IM NOW ONE Stop: 11/15/21 12:25 Last Admin: 11/15/21 15:45 Dose: 5 mg Documented by: MARICARMEN Lorazepam (Lorazepam 2 Mg/Ml Inj) 2 mg IM NOW ONE Stop: 11/15/21 12:31 Last Admin: 11/15/21 15:45 Dose: 2 mg Documented by: MARICARMEN Lorazepam (Lorazepam 2 Mg/Ml Inj) 2 mg IM NOW ONE Stop: 11/15/21 16:07 Last Admin: 11/15/21 16:52 Dose: 2 mg Documented by: MARICARMEN Olanzapine (Olanzapine Odt 10 Mg Tab) 10 mg PO NOW ONE Stop: 11/15/21 16:15 Last Admin: 11/15/21 16:20 Dose: 10 mg Documented by: MARICARMEN Reevaluation(s) Reevaluation #1: Patient is much more calm at this time, sitter at bedside. Vital Signs Vital signs: Vital Signs - 8 hr 11/15/21 16:00 11/15/21 16:58 11/15/21 18:00 Pulse Rate 80 67 65 Respiratory Rate 18 18 Blood Pressure Pulse Oximetry 98 98 98 11/15/21 19:02 11/15/21 19:29 11/15/21 20:29 Pulse Rate 62 60 71 Respiratory Rate 18 17 18 Blood Pressure 129/79 144/77 H Pulse Oximetry 99 98 99 <Sushila Valle DO - Last Filed: 11/17/21 14:51> Orders Ordered: Discontinued Medications Diphenhydramine HCl (Diphenhydramine 50 Mg/Ml Vial) 50 mg IM NOW ONE Stop: 11/15/21 12:31 Last Admin: 11/15/21 15:45 Dose: 50 mg Documented by: MARICARMEN Haloperidol (Haloperidol 5 Mg/Ml Vial) 5 mg IM NOW ONE Stop: 11/15/21 12:25 Last Admin: 11/15/21 15:45 Dose: 5 mg Documented by: MARICARMEN Lorazepam (Lorazepam 2 Mg/Ml Inj) 2 mg IM NOW ONE Stop: 11/15/21 12:31 Last Admin: 11/15/21 15:45 Dose: 2 mg Documented by: MARICARMEN Lorazepam (Lorazepam 2 Mg/Ml Inj) 2 mg IM NOW ONE Stop: 11/15/21 16:07 Last Admin: 11/15/21 16:52 Dose: 2 mg Documented by: MARICARMEN Olanzapine (Olanzapine Odt 10 Mg Tab) 10 mg PO NOW ONE Stop: 11/15/21 16:15 Last Admin: 11/15/21 16:20 Dose: 10 mg Documented by: MARICARMEN Vital Signs Vital signs: Vital Signs - 8 hr 11/15/21 16:00 11/15/21 16:58 11/15/21 18:00 Pulse Rate 80 67 65 Respiratory Rate 18 18 Blood Pressure Pulse Oximetry 98 98 98 11/15/21 19:02 11/15/21 19:29 11/15/21 20:29 Pulse Rate 62 60 71 Respiratory Rate 18 17 18 Blood Pressure 129/79 144/77 H Pulse Oximetry 99 98 99 [facility] - Psych <KIM Meredith - Last Filed: 11/15/21 20:34> Lab Data Result diagrams: 11/15/21 12:52 11/15/21 12:21 Labs: Lab Results 11/15/21 11/15/21 11/15/21 Range/Units 12:21 12:21 12:45 WBC (4.5-11.0) X10^3/uL RBC (4.5-5.9) X10^6/uL Hgb (13.5-17.5) g/dL Hct (41-53) % MCV (80-100) fL MCH (26-34) PG MCHC (30-36) % RDW (11.6-14.8) % Plt Count (150-400) X10^3/uL Neut % (Auto) (50-75) % Lymph % (Auto) (25-40) % [place] % (Auto) (3-14) % Eos % (Auto) (2-4) % Baso % (Auto) (0-2) % Neut # (Auto) (2655-6171) /uL Lymph # (Auto) (8413-3063) /uL [place] # (Auto) (0-900) /uL Eos # (Auto) (0-450) /uL Baso # (Auto) (0-100) /uL Sodium 135 L (137-145) mmol/L Potassium 4.4 (3.4-5.1) mmol/L Chloride 101 (98-107) mmol/L Carbon Dioxide 20 L (22-32) mmol/L BUN 20 (9-20) mg/dL Creatinine 0.80 (0.66-1.25) mg/dL Estimated GFR > 60.0 (>60) mL/min BUN/Creatinine Ratio 25.0 H (6-22) Glucose 94 (80-110) mg/dL Calcium 9.8 (8.4-10.2) mg/dL Magnesium 2.1 (1.6-2.3) mg/dL Total Bilirubin 1.4 H (0.2-1.3) mg/dL AST 40 (17-59) IU/L ALT 25 (<50) IU/L Alkaline Phosphatase 80 (38-126) U/L Total Creatine Kinase 178 H (55-170) U/L Total Protein 8.0 (6.3-8.2) g/dL Albumin 4.8 (3.5-5.0) g/dL Globulin 3.2 (1.7-4.1) g/dL Albumin/Globulin Ratio 1.5 (1.0-2.8) TSH 1.21 (0.47-4.68) uIU/mL Free T4 1.58 (0.78-2.19) ng/dL Urine Color Urine Appearance Urine pH (4.5-8.0) Ur Specific [place] (1.000-1.035) Urine Protein (Negative) Urine Glucose (UA) (Negative) g/dL Urine Ketones (NEGATIVE) Urine Occult Blood (Negative) Urine Nitrate (Negative) Urine Bilirubin (NEGATIVE) Ur Bilirubin Confirm (Negative) Urine Urobilinogen (0.2) E.U./dL Ur Leukocyte Esterase (NEGATIVE) Urine RBC (0-5/HPF) Urine WBC (0-5/HPF) Ur Squamous Epith Cells (0-5/HPF) Urine Bacteria (None) Urine Mucus (Negative) Ur Culture Indicated? Salicylates < 1.0 (<20) mg/dL U Opiates 300ng/mL cut (Negative) Ur Oxycodone Screen (Negative) Urine Methadone Screen (Negative) Acetaminophen < 10 L (10-30) ug/mL Ur Barbiturates Screen (Negative) U Tricyclic Antidepress (Negative) Ur Phencyclidine Scrn (Negative) Ur Amphetamines Screen (Negative) U Methamphetamines Scrn (Negative) Ur MDMA Scrn (Ecstasy) (Negative) U Benzodiazepines Scrn (Negative) Urine Cocaine Screen (Negative) U Marijuana (THC) Screen (Negative) Ethyl Alcohol < 10 ( - 10) mg/dL SARS-CoV-2 (PCR) (Negative) 11/15/21 11/15/21 11/15/21 Range/Units 12:52 12:54 18:06 WBC 5.7 (4.5-11.0) X10^3/uL RBC 4.16 L (4.5-5.9) X10^6/uL Hgb 13.2 L (13.5-17.5) g/dL Hct 39.1 L (41-53) % MCV 94.0 (80-100) fL MCH 31.6 (26-34) PG MCHC 33.6 (30-36) % RDW 14.2 (11.6-14.8) % Plt Count 235 (150-400) X10^3/uL Neut % (Auto) 70.6 (50-75) % Lymph % (Auto) 13.3 L (25-40) % [place] % (Auto) 14.7 H (3-14) % Eos % (Auto) 0.5 L (2-4) % Baso % (Auto) 0.9 (0-2) % Neut # (Auto) 4000 (9669-1794) /uL Lymph # (Auto) 800 L (5661-8965) /uL [place] # (Auto) 800 (0-900) /uL Eos # (Auto) 0 (0-450) /uL Baso # (Auto) 100 (0-100) /uL Sodium (137-145) mmol/L Potassium (3.4-5.1) mmol/L Chloride (98-107) mmol/L Carbon Dioxide (22-32) mmol/L BUN (9-20) mg/dL Creatinine (0.66-1.25) mg/dL Estimated GFR (>60) mL/min BUN/Creatinine Ratio (6-22) Glucose (80-110) mg/dL Calcium (8.4-10.2) mg/dL Magnesium (1.6-2.3) mg/dL Total Bilirubin (0.2-1.3) mg/dL AST (17-59) IU/L ALT (<50) IU/L Alkaline Phosphatase (38-126) U/L Total Creatine Kinase (55-170) U/L Total Protein (6.3-8.2) g/dL Albumin (3.5-5.0) g/dL Globulin (1.7-4.1) g/dL Albumin/Globulin Ratio (1.0-2.8) TSH (0.47-4.68) uIU/mL Free T4 (0.78-2.19) ng/dL Urine Color Urine Appearance Urine pH (4.5-8.0) Ur Specific [place] (1.000-1.035) Urine Protein (Negative) Urine Glucose (UA) (Negative) g/dL Urine Ketones (NEGATIVE) Urine Occult Blood (Negative) Urine Nitrate (Negative) Urine Bilirubin (NEGATIVE) Ur Bilirubin Confirm (Negative) Urine Urobilinogen (0.2) E.U./dL Ur Leukocyte Esterase (NEGATIVE) Urine RBC (0-5/HPF) Urine WBC (0-5/HPF) Ur Squamous Epith Cells (0-5/HPF) Urine Bacteria (None) Urine Mucus (Negative) Ur Culture Indicated? Salicylates (<20) mg/dL U Opiates 300ng/mL cut Negative (Negative) Ur Oxycodone Screen Negative (Negative) Urine Methadone Screen Negative (Negative) Acetaminophen (10-30) ug/mL Ur Barbiturates Screen Negative (Negative) U Tricyclic Antidepress Negative (Negative) Ur Phencyclidine Scrn Negative (Negative) Ur Amphetamines Screen Negative (Negative) U Methamphetamines Scrn Negative (Negative) Ur MDMA Scrn (Ecstasy) Negative (Negative) U Benzodiazepines Scrn Negative (Negative) Urine Cocaine Screen Negative (Negative) U Marijuana (THC) Screen Negative (Negative) Ethyl Alcohol ( - 10) mg/dL SARS-CoV-2 (PCR) Negative (Negative) 11/15/21 Range/Units 18:06 WBC (4.5-11.0) X10^3/uL RBC (4.5-5.9) X10^6/uL Hgb (13.5-17.5) g/dL Hct (41-53) % MCV (80-100) fL MCH (26-34) PG MCHC (30-36) % RDW (11.6-14.8) % Plt Count (150-400) X10^3/uL Neut % (Auto) (50-75) % Lymph % (Auto) (25-40) % [place] % (Auto) (3-14) % Eos % (Auto) (2-4) % Baso % (Auto) (0-2) % Neut # (Auto) (9317-0018) /uL Lymph # (Auto) (9139-6307) /uL [place] # (Auto) (0-900) /uL Eos # (Auto) (0-450) /uL Baso # (Auto) (0-100) /uL Sodium (137-145) mmol/L Potassium (3.4-5.1) mmol/L Chloride (98-107) mmol/L Carbon Dioxide (22-32) mmol/L BUN (9-20) mg/dL Creatinine (0.66-1.25) mg/dL Estimated GFR (>60) mL/min BUN/Creatinine Ratio (6-22) Glucose (80-110) mg/dL Calcium (8.4-10.2) mg/dL Magnesium (1.6-2.3) mg/dL Total Bilirubin (0.2-1.3) mg/dL AST (17-59) IU/L ALT (<50) IU/L Alkaline Phosphatase (38-126) U/L Total Creatine Kinase (55-170) U/L Total Protein (6.3-8.2) g/dL Albumin (3.5-5.0) g/dL Globulin (1.7-4.1) g/dL Albumin/Globulin Ratio (1.0-2.8) TSH (0.47-4.68) uIU/mL Free T4 (0.78-2.19) ng/dL Urine Color Yellow Urine Appearance Clear Urine pH 6.5 (4.5-8.0) Ur Specific [place] 1.020 (1.000-1.035) Urine Protein Trace H (Negative) Urine Glucose (UA) Negative (Negative) g/dL Urine Ketones 2+ H (NEGATIVE) Urine Occult Blood 1+ H (Negative) Urine Nitrate Negative (Negative) Urine Bilirubin 1+ H (NEGATIVE) Ur Bilirubin Confirm Negative (Negative) Urine Urobilinogen 0.2 (0.2) E.U./dL Ur Leukocyte Esterase Negative (NEGATIVE) Urine RBC 1-5/hpf (0-5/HPF) Urine WBC 0-1/hpf (0-5/HPF) Ur Squamous Epith Cells 0-1 /hpf (0-5/HPF) Urine Bacteria None seen (None) Urine Mucus 1+ H (Negative) Ur Culture Indicated? Cult not indicated Salicylates (<20) mg/dL U Opiates 300ng/mL cut (Negative) Ur Oxycodone Screen (Negative) Urine Methadone Screen (Negative) Acetaminophen (10-30) ug/mL Ur Barbiturates Screen (Negative) U Tricyclic Antidepress (Negative) Ur Phencyclidine Scrn (Negative) Ur Amphetamines Screen (Negative) U Methamphetamines Scrn (Negative) Ur MDMA Scrn (Ecstasy) (Negative) U Benzodiazepines Scrn (Negative) Urine Cocaine Screen (Negative) U Marijuana (THC) Screen (Negative) Ethyl Alcohol ( - 10) mg/dL SARS-CoV-2 (PCR) (Negative) ECG Data Interpretation: Sinus tachycardia on EKG, QT interval was 450, no ST changes or ectopy MDM Narrative Medical decision making narrative: 65-year-old male brought into the emergency department by EMS after somebody called EMS for patient when they saw him destroying his house. Patient came in in a manic episode with a history of bipolar, and acute psychosis. Patient had 6 knives on him after he was searched by ER staff and his clothing was removed as well as his belongings and a sitter was obtained. Patient was recently seen by his provider Dr. Hess for a med refill without any signs of acute faheem or psychosis at that time, patient reports that he has not slept. He has been agitated, rambling, active, and manic since he arrived in the emergency department and observed over the last 7 hours. Janett from social Work saw the patient, he was evaluated by Psychiatry, continued to be agitated and did not provide a urine sample, he was sedated for staff and patient safety with Haldol, Benadryl, and Ativan. He did rest after this and got approximately an hour of sleep. No pertinent findings on his lab work, urine drug screen was negative, COVID was negative, he is medically clear for admission to inpatient psych. [facility] and patient has a bed. <Sushila Valle, DO - Last Filed: 11/17/21 14:51> Lab Data Labs: Lab Results 11/15/21 11/15/21 11/15/21 Range/Units 12: 12: 12:45 WBC (4.5-11.0) X10^3/uL RBC (4.5-5.9) X10^6/uL Hgb (13.5-17.5) g/dL Hct (41-53) % MCV (80-100) fL MCH (26-34) PG MCHC (30-36) % RDW (11.6-14.8) % Plt Count (150-400) X10^3/uL Neut % (Auto) (50-75) % Lymph % (Auto) (25-40) % [place] % (Auto) (3-14) % Eos % (Auto) (2-4) % Baso % (Auto) (0-2) % Neut # (Auto) (8794-0538) /uL Lymph # (Auto) (4210-0264) /uL [place] # (Auto) (0-900) /uL Eos # (Auto) (0-450) /uL Baso # (Auto) (0-100) /uL Sodium 135 L (137-145) mmol/L Potassium 4.4 (3.4-5.1) mmol/L Chloride 101 (98-107) mmol/L Carbon Dioxide 20 L (22-32) mmol/L BUN 20 (9-20) mg/dL Creatinine 0.80 (0.66-1.25) mg/dL Estimated GFR > 60.0 (>60) mL/min BUN/Creatinine Ratio 25.0 H (6-22) Glucose 94 (80-110) mg/dL Calcium 9.8 (8.4-10.2) mg/dL Magnesium 2.1 (1.6-2.3) mg/dL Total Bilirubin 1.4 H (0.2-1.3) mg/dL AST 40 (17-59) IU/L ALT 25 (<50) IU/L Alkaline Phosphatase 80 (38-126) U/L Total Creatine Kinase 178 H (55-170) U/L Total Protein 8.0 (6.3-8.2) g/dL Albumin 4.8 (3.5-5.0) g/dL Globulin 3.2 (1.7-4.1) g/dL Albumin/Globulin Ratio 1.5 (1.0-2.8) TSH 1.21 (0.47-4.68) uIU/mL Free T4 1.58 (0.78-2.19) ng/dL Urine Color Urine Appearance Urine pH (4.5-8.0) Ur Specific [place] (1.000-1.035) Urine Protein (Negative) Urine Glucose (UA) (Negative) g/dL Urine Ketones (NEGATIVE) Urine Occult Blood (Negative) Urine Nitrate (Negative) Urine Bilirubin (NEGATIVE) Ur Bilirubin Confirm (Negative) Urine Urobilinogen (0.2) E.U./dL Ur Leukocyte Esterase (NEGATIVE) Urine RBC (0-5/HPF) Urine WBC (0-5/HPF) Ur Squamous Epith Cells (0-5/HPF) Urine Bacteria (None) Urine Mucus (Negative) Ur Culture Indicated? Salicylates < 1.0 (<20) mg/dL U Opiates 300ng/mL cut (Negative) Ur Oxycodone Screen (Negative) Urine Methadone Screen (Negative) Acetaminophen < 10 L (10-30) ug/mL Ur Barbiturates Screen (Negative) U Tricyclic Antidepress (Negative) Ur Phencyclidine Scrn (Negative) Ur Amphetamines Screen (Negative) U Methamphetamines Scrn (Negative) Ur MDMA Scrn (Ecstasy) (Negative) U Benzodiazepines Scrn (Negative) Urine Cocaine Screen (Negative) U Marijuana (THC) Screen (Negative) Ethyl Alcohol < 10 ( - 10) mg/dL SARS-CoV-2 (PCR) (Negative) 11/15/21 11/15/21 11/15/21 Range/Units 12:52 12:54 18:06 WBC 5.7 (4.5-11.0) X10^3/uL RBC 4.16 L (4.5-5.9) X10^6/uL Hgb 13.2 L (13.5-17.5) g/dL Hct 39.1 L (41-53) % MCV 94.0 (80-100) fL MCH 31.6 (26-34) PG MCHC 33.6 (30-36) % RDW 14.2 (11.6-14.8) % Plt Count 235 (150-400) X10^3/uL Neut % (Auto) 70.6 (50-75) % Lymph % (Auto) 13.3 L (25-40) % [place] % (Auto) 14.7 H (3-14) % Eos % (Auto) 0.5 L (2-4) % Baso % (Auto) 0.9 (0-2) % Neut # (Auto) 4000 (1915-7983) /uL Lymph # (Auto) 800 L (5589-9271) /uL [place] # (Auto) 800 (0-900) /uL Eos # (Auto) 0 (0-450) /uL Baso # (Auto) 100 (0-100) /uL Sodium (137-145) mmol/L Potassium (3.4-5.1) mmol/L Chloride (98-107) mmol/L Carbon Dioxide (22-32) mmol/L BUN (9-20) mg/dL Creatinine (0.66-1.25) mg/dL Estimated GFR (>60) mL/min BUN/Creatinine Ratio (6-22) Glucose (80-110) mg/dL Calcium (8.4-10.2) mg/dL Magnesium (1.6-2.3) mg/dL Total Bilirubin (0.2-1.3) mg/dL AST (17-59) IU/L ALT (<50) IU/L Alkaline Phosphatase (38-126) U/L Total Creatine Kinase (55-170) U/L Total Protein (6.3-8.2) g/dL Albumin (3.5-5.0) g/dL Globulin (1.7-4.1) g/dL Albumin/Globulin Ratio (1.0-2.8) TSH (0.47-4.68) uIU/mL Free T4 (0.78-2.19) ng/dL Urine Color Urine Appearance Urine pH (4.5-8.0) Ur Specific [place] (1.000-1.035) Urine Protein (Negative) Urine Glucose (UA) (Negative) g/dL Urine Ketones (NEGATIVE) Urine Occult Blood (Negative) Urine Nitrate (Negative) Urine Bilirubin (NEGATIVE) Ur Bilirubin Confirm (Negative) Urine Urobilinogen (0.2) E.U./dL Ur Leukocyte Esterase (NEGATIVE) Urine RBC (0-5/HPF) Urine WBC (0-5/HPF) Ur Squamous Epith Cells (0-5/HPF) Urine Bacteria (None) Urine Mucus (Negative) Ur Culture Indicated? Salicylates (<20) mg/dL U Opiates 300ng/mL cut Negative (Negative) Ur Oxycodone Screen Negative (Negative) Urine Methadone Screen Negative (Negative) Acetaminophen (10-30) ug/mL Ur Barbiturates Screen Negative (Negative) U Tricyclic Antidepress Negative (Negative) Ur Phencyclidine Scrn Negative (Negative) Ur Amphetamines Screen Negative (Negative) U Methamphetamines Scrn Negative (Negative) Ur MDMA Scrn (Ecstasy) Negative (Negative) U Benzodiazepines Scrn Negative (Negative) Urine Cocaine Screen Negative (Negative) U Marijuana (THC) Screen Negative (Negative) Ethyl Alcohol ( - 10) mg/dL SARS-CoV-2 (PCR) Negative (Negative) 11/15/21 Range/Units 18:06 WBC (4.5-11.0) X10^3/uL RBC (4.5-5.9) X10^6/uL Hgb (13.5-17.5) g/dL Hct (41-53) % MCV (80-100) fL MCH (26-34) PG MCHC (30-36) % RDW (11.6-14.8) % Plt Count (150-400) X10^3/uL Neut % (Auto) (50-75) % Lymph % (Auto) (25-40) % [place] % (Auto) (3-14) % Eos % (Auto) (2-4) % Baso % (Auto) (0-2) % Neut # (Auto) (0778-1286) /uL Lymph # (Auto) (6774-2202) /uL [place] # (Auto) (0-900) /uL Eos # (Auto) (0-450) /uL Baso # (Auto) (0-100) /uL Sodium (137-145) mmol/L Potassium (3.4-5.1) mmol/L Chloride (98-107) mmol/L Carbon Dioxide (22-32) mmol/L BUN (9-20) mg/dL Creatinine (0.66-1.25) mg/dL Estimated GFR (>60) mL/min BUN/Creatinine Ratio (6-22) Glucose (80-110) mg/dL Calcium (8.4-10.2) mg/dL Magnesium (1.6-2.3) mg/dL Total Bilirubin (0.2-1.3) mg/dL AST (17-59) IU/L ALT (<50) IU/L Alkaline Phosphatase (38-126) U/L Total Creatine Kinase (55-170) U/L Total Protein (6.3-8.2) g/dL Albumin (3.5-5.0) g/dL Globulin (1.7-4.1) g/dL Albumin/Globulin Ratio (1.0-2.8) TSH (0.47-4.68) uIU/mL Free T4 (0.78-2.19) ng/dL Urine Color Yellow Urine Appearance Clear Urine pH 6.5 (4.5-8.0) Ur Specific [place] 1.020 (1.000-1.035) Urine Protein Trace H (Negative) Urine Glucose (UA) Negative (Negative) g/dL Urine Ketones 2+ H (NEGATIVE) Urine Occult Blood 1+ H (Negative) Urine Nitrate Negative (Negative) Urine Bilirubin 1+ H (NEGATIVE) Ur Bilirubin Confirm Negative (Negative) Urine Urobilinogen 0.2 (0.2) E.U./dL Ur Leukocyte Esterase Negative (NEGATIVE) Urine RBC 1-5/hpf (0-5/HPF) Urine WBC 0-1/hpf (0-5/HPF) Ur Squamous Epith Cells 0-1 /hpf (0-5/HPF) Urine Bacteria None seen (None) Urine Mucus 1+ H (Negative) Ur Culture Indicated? Cult not indicated Salicylates (<20) mg/dL U Opiates 300ng/mL cut (Negative) Ur Oxycodone Screen (Negative) Urine Methadone Screen (Negative) Acetaminophen (10-30) ug/mL Ur Barbiturates Screen (Negative) U Tricyclic Antidepress (Negative) Ur Phencyclidine Scrn (Negative) Ur Amphetamines Screen (Negative) U Methamphetamines Scrn (Negative) Ur MDMA Scrn (Ecstasy) (Negative) U Benzodiazepines Scrn (Negative) Urine Cocaine Screen (Negative) U Marijuana (THC) Screen (Negative) Ethyl Alcohol ( - 10) mg/dL SARS-CoV-2 (PCR) (Negative) Discharge Plan Departure Patient Disposition: Xfer Psychiatric Hosp Clinical Impression: Acute psychosis, Bipolar disorder Activity Restrictions/Additional Instructions: *You have been diagnosed with acute faheem. *What to do: *Please continue to take your regular medications as directed. [ ] New medication prescriptions sent to your pharmacy: [ ] [ ] New medication written as a paper prescription [x ] No new medications given *Please follow up with your primary care provider in 2-3 days, call for an appointment. Let them know you were seen in the Emergency Department and that we ask that you be seen in follow up. We will electronically transmit a record of today's note if your PCP is in our system *If you do not have a primary care provider please contact the [facility] Resource line at [phone]. They will ask some questions about your medical history and help get you set up with a doctor in the community. *Return to Emergency Department if you should have any new, worsening or concerning symptoms, such as [fever greater than 101F, chills, worsening pain, persistent vomiting or other bothersome symptoms] Referrals: Johann Hess DO [Primary Care Provider] - <Sushila Valle DO - Last Filed: 11/17/21 14:51> Cosign ED Attending Rubensature Attestation: I was immediately available in the department for consultation. Documentation has been reviewed. I agree with assessment and plan.
--- NOTE | 2021-11-15 12:35 | PC.NURSE ---
multiple coats, shirts, jackets, pants, socks, boots, 4 knives, 2 lighters, 1 set of matches, flashlight, measuring tape, bottle of hand extractor operator, bottle of aspirin, coins, EBT card, 3 glasses, thermometer, 2 pens, papers, hearing aid batteries, all belongings and clothing removed from patient and patient placed in green safety scrubs. belongings all secured into safe.
[2021-11-15 13:07] LABS: Add Manual Diff / Slide Review NO; Basophils Absolute Auto 100 /uL (0-100); Basophils Percent Auto 0.9 % (0-2); Eosinophils Absolute Auto 0 /uL (0-450); Eosinophils Percent Auto 0.5 % (2-4); Hematocrit 39.1 % (41-53); Hemoglobin 13.2 g/dL (13.5-17.5); Lymphocytes Absolute Auto 800 /uL (1100-4500); Lymphocytes Percent Auto 13.3 % (25-40); Mean Corpuscular HGB Conc 33.6 % (30-36); Mean Corpuscular Hemoglobin 31.6 PG (26-34); Monocytes Absolute Auto 800 /uL (0-900); Monocytes Percent Auto 14.7 % (3-14); Neutrophils Absolute Auto 4000 /uL (1500-7000); Neutrophils Percent Auto 70.6 % (50-75); Platelet Count 235 X10^3/uL (150-400); Red Blood Cell Count 4.16 X10^6/uL (4.5-5.9); Red Cell Distribution Width 14.2 % (11.6-14.8); White Blood Cell Count 5.7 X10^3/uL (4.5-11.0)
[2021-11-15 13:20] LABS: Acetaminophen < 10 ug/mL (10-30); Alanine Aminotransferase 25 IU/L (<50); Albumin 4.8 g/dL (3.5-5.0); Albumin Globulin Ratio 1.5 (1.0-2.8); Alkaline Phosphatase 80 U/L (38-126); Aspartate Aminotransferase 40 IU/L (17-59); Bilirubin Total 1.4 mg/dL (0.2-1.3); Blood Urea Nitrogen 20 mg/dL (9-20); Calcium 9.8 mg/dL (8.4-10.2); Carbon Dioxide 20 mmol/L (22-32); Chloride 101 mmol/L (98-107); Estimated Glomerular Filt Rate > 60.0 mL/min (>60); Ethanol (ETOH) < 10 mg/dL; Globulin 3.2 g/dL (1.7-4.1); Glucose 94 mg/dL (80-110); HEMOLYSIS 26 (0-50); Potassium 4.4 mmol/L (3.4-5.1); Salicylate < 1.0 mg/dL (<20); Sodium 135 mmol/L (137-145)
[2021-11-15 13:27] LABS: COVID19 -Nasal RAPID Negative (Negative)
--- NOTE | 2021-11-15 13:43 | CM.SWNOTE ---
FRUIT RANCHER Assessment FRUIT RANCHER - Classroom Technology Technician Assessment FRUIT RANCHER/Classroom Technology Technician Assessment Time Spent with Patient Start date 11/15/21 Visit Start Time 12:40 End date 11/15/21 Visit End Time 13:00 Total time Care Management spent on 20 patient visit-in minutes Mental Health Screening Include Onset, Duration, Intensity Presenting Problem Patient presents to ED via EMS after patient's roommate reported concern for patient elevated irritation, agitation and manic behaviors . It is reported that at patient's home there is a hand gun and rifle in plain sight. Patient presents to ED with 4 knifes in his pockets among other items. Precipitating Event(s) None reported, patient is poor historian at this time. Patient has hx of Bipolar Disorder Patient Strengths Patient is staying in hospital room without restraints. Patient is non-combative. Current Behavioral Health Provider(s) Per patient's last PCP appt, Include Facility, Provider, Ph. # patient has referral for psychiatrist but has not followed through with appt. Psych. Hx Mental Health and Chemical Patient is poor historian and Dependency unable to discuss this due to patient's disorganized tangential dialogue with self . Patient has dx of Bipolar 1 Disorder, Alcohol use Disorder , and Depression. Patient has hx of acute psychosis and manic episodes. Patient has rx for Bupripion HCl 100mg 12 hour sustained release, Divalproex 250 mg delayed release, and Lorazepam 1 mg PO. Family Hx of Behavioral Abuse None reported Psychiatric Hospitalizations (date(s)/ No known hx of psychiatric location) hospitalizations. Patient was assessed by DCR on 08/30/21 and was not detained . Psychosocial information & Support Patient is 65 y/o male who Systems resides in [place] with roommate. Patient has no emergency contacts listed and cannot identify supports at this time. School/Work Unemployed Legal Concerns Legal Matters - Outstanding Issues Unknown, none reported Mental Status Orientation (Person/Place/Time) A/O to self and person. It is unknown if patient is A/O to place and time at this given time. Stated Mood I want vapor Affect (Congruent with Mood?) Euphoric, full range, labile depending on thought content. Thought Content - Specify/Describe Patient is currently having Obsessions, Delusions, Hallucinations dialogue with self about politics, other countries, science and history. Patient endorses he knows the president and knows people of power. Patient presents to responding to internal stimuli. Thought Processes (Zaulcjg-Dpwolgxw-Jxqu Tangential, disorganized Mtkzlfqf-Ikzkilyn-Ictjvryrwe- Mbubziuzrztwfe-Gsgejac-Wzjwfwxaxyhn- Thought Blocking) Speech (Mwjawh-Vulj-Tdbkotp-Rapid-Soft- Rapid Loud-Pressured) Motor (Ufaqvh-Bycytxypc-Diui-Other) Normal, Patient laying down in hospital bed Insight (Mxhd-Yzwp-Kyxv/Limited) Poor Judgement (Cjcu-Hfgb-Qcpl/Limited) Poor Impulse Control (Adequate-Impaired) adequate Memory (Uwxnuwego-Xxnbze-Sosqge, impaired, not formally Impaired-Intact) assessed Concentration (Intact-Impaired) impaired Attention (Intact-Impaired) impaired Behavior (Appropriate-Inappropriate) appropriate Risk Assessment Comment Unable to assess due to patient's tangential dialogue with self. Intervention Intervention FRUIT RANCHER enters room to meet with patient and observes patient from outside of room. Patient presents to ED with 4 knifes, concern from roommate due to patient trashing their shared home. Patient presents with tangential, disorganized manic dialogue with self responding to internal stimuli. Patient is not able to engage in conversation due to patient 's distraction from internal stimuli. It is the opinion of this FRUIT RANCHER that patient is gravely disabled and is in need of a DCR assessment to determine appropriateness for ASHLEE placement. It is the opinion of this FRUIT RANCHER that patient would be appropriate for and benefit from A[facility]E [facility] inpatient hospitalization. FRUIT RANCHER reviews the above to ED provider Dr. Valle and DOM Day who indicate agreement and understanding. Plan RA Plan FRUIT RANCHER to dispatch DCR when patient is medically clear. GILBERTO Pack
[2021-11-15 13:47] LABS: Free T4, Direct Thyroxine 1.58 ng/dL (0.78-2.19)
[2021-11-15 14:00] LABS: Thyroid Stimulating Hormone 1.21 uIU/mL (0.47-4.68)
[2021-11-15] MEDS: diphenhydrAMINE 50 MG/ML VIAL IM (15:45)
[2021-11-15] MEDS: LORazepam 2 MG/ML INJ IM ×2 (15:45→16:52)
[2021-11-15] MEDS: HALOPERIDOL 5 MG/ML VIAL IM (15:45)
--- NOTE | 2021-11-15 15:51 | PC.NURSE ---
Addendum entered by Samina Wesley R.N. 11/15/21 15:54: pt dcr consult tablet initiated. pt beliggerant, uncooperative, rambling speech, yelling, irritable angry, attempting to walk out of room. pt medicated with benadryl, ativan, haldol im with assitance of 5 er staff members. pt combative with staff for im ingection, pt kicking at staff members. Original Note: pt dcr consult tablet initiated. pt beliggerant, uncooperative, rambling speech, yelling, irritable angry, attempting to walk out of room. pt medicated with benadryl, ativan, haldol im with assitance of 5 er staff members.
[2021-11-15] MEDS: OLANZapine ODT 10 MG TAB PO (16:20)
[2021-11-15 16:24] LABS: Creatine Kinase 178 U/L (55-170); Magnesium 2.1 mg/dL (1.6-2.3)
[2021-11-15 18:13] LABS: Appearance Urine UA CLEAR; Bilirubin Urine UA 1+ (NEGATIVE); Color Urine UA YELLOW; Glucose Urine UA NEGATIVE (Negative); Ketones Urine UA 2+ (NEGATIVE); Leukocyte Esterase Urine UA NEGATIVE (NEGATIVE); Nitrite Urine UA NEGATIVE (Negative); Occult Blood Urine UA 1+ (Negative); Protein Urine UA TRACE (Negative); Urobilinogen Urine UA 0.2 E.U./dL (0.2); pH Urine UA 6.5 (4.5-8.0)
[2021-11-15 18:16] LABS: UR Morphine/Opiate cutoff 300 Negative (Negative); Ur Creatinine Normal (Normal); Ur Specific Gravity Normal (Normal); Urine Amphetamines Negative (Negative); Urine Barbiturates Negative (Negative); Urine Benzodiazepines Negative (Negative); Urine Cocaine Negative (Negative); Urine MDMA Negative (Negative); Urine Methadone Negative (Negative); Urine Methamphetamines Negative (Negative); Urine Phencyclidine Negative (Negative); Urine Tetrahydrocannabinol Negative (Negative); Urine Tricyclic Antidepressant Negative (Negative); Urine pH Normal (Normal)
[2021-11-15 18:17] LABS: Urine Oxycodone Negative (Negative)
[2021-11-15 18:20] LABS: Bacteria Urine None Seen; Culture Indicated Urine Cult Not Indicated; Ictotest Urine Negative (Negative); Mucus Urine 1+ (Negative); RBC Urine 1-5/HPF (0-5/HPF); Squamous Epithelial Cell Urine 0-1 /HPF (0-5/HPF); WBC Urine 0-1/HPF (0-5/HPF)
--- NOTE | 2021-11-15 20:17 | CM.SWNOTE ---
SIDEHAND Note Patient was evaluated by RUBIO Neri and it was determined that patient is appropriate for ASHLEE inpatient hospitalization. Halle reports that [facility] has accepted patient. OFFENDER EMPLOYMENT SPECIALIST to set up transportation. Plan: Patient to transfer to [facility] for ASHLEE inpatient hospitalization bed GILBERTO Pack
--- NOTE | 2021-11-15 21:04 | PC.NURSE ---
PT awoke upon transferring from stretcher to transport [facility]. States I'm ready to go home. Informed pt that he would be transferring to [facility] for evaluation. Pt calm/cooperative upon transfer to [facility]. Warm blankets given. All belongings sent with pt. Ambulance crew notified that there are knives in pt belongings bags and they put bags in the front of ambulance. Report called to deanne Elizabeth consult for [facility].
== END 2021-11-15 21:00 ==
PROVIDERS: Emergency Medicine; Emergency Provider Nurse Practitioner Critical Care Medicine; Family Provider Family Medicine; PCP Family Medicine
DX: F23 Brief psychotic disorder (principal); F31.9 Bipolar disorder, unspecified; R00.0 Tachycardia, unspecified; Z20.822 Contact with and (suspected) exposure to COVID-19
CPT/HCPCS: 51701; 80053; 80305; 80320; 80329; 81001; 82550; 83735; 84439; 84443; 85025; 87635; 93005; 96372; 99284; C9803; G0480; J1200; J1630; J2060

== ENCOUNTER 2023-06-04 18:07 | Emergency (ER) | payer OTHER, SELFPAY ==
[2023-06-04] VITALS (14 sets, daily range): BP systolic 154–180; BP diastolic 74–105; PULSE 70–120; RESP 15–24; TEMP 36.6; O2SAT 96–99
--- NOTE | 2023-06-04 18:38 | DI.CT.S_ITS ---
PROCEDURE: CT HEAD/BRAIN WO CON INDICATIONS: AMS TECHNIQUE: Noncontrast 4.5 mm thick angled axial sections acquired from the foramen magnum to the vertex, with coronal and sagittal reformats. For radiation dose reduction, the following was used: automated exposure control, adjustment of mA and/or kV according to patient size. COMPARISON: None. FINDINGS: CSF spaces: Basal cisterns are patent. No extra-axial fluid collections. The ventricles are symmetric in size and shape. Brain: No intracranial bleeds or masses. There is cerebral volume loss for age, with resultant ventricular and sulcal prominence. There are periventricular and deep white matter chronic small vessel ischemic changes. There is intracranial internal carotid artery atherosclerosis. Skull and face: Calvarium and visualized facial bones appear intact, without suspicious lesions. Sinuses: Visualized sinuses and mastoids are clear. IMPRESSION: No intracranial hemorrhage or other acute intracranial abnormality. Dictated by: Dash Washington M.D. on 06/04/2023 at 19:13 Approved by: Dash Washington M.D. on 06/04/2023 at 19:27
--- NOTE | 2023-06-04 19:09 | PC.NURSE ---
I spoke to pts pcp Dr Hess. Dr Hess states that the patient becomes confused and doesn't make much sense if he stops taking his medication. Dr Monterroso aware
[2023-06-04 19:12] LABS: Add Manual Diff / Slide Review NO; Basophils Absolute Auto 0 /uL (0-100); Basophils Percent Auto 1.2 % (0-2); Eosinophils Absolute Auto 0 /uL (0-450); Eosinophils Percent Auto 1.3 % (2-4); Hematocrit 39.1 % (41-53); Hemoglobin 13.4 g/dL (13.5-17.5); Lymphocytes Absolute Auto 1100 /uL (1100-4500); Lymphocytes Percent Auto 29.8 % (25-40); Mean Corpuscular HGB Conc 34.3 % (30-36); Mean Corpuscular Hemoglobin 31.9 PG (26-34); Mean Corpuscular Volume 92.8 fL (80-100); Monocytes Absolute Auto 300 /uL (0-900); Monocytes Percent Auto 9.3 % (3-14); Neutrophils Absolute Auto 2200 /uL (1500-7000); Neutrophils Percent Auto 58.4 % (50-75); Platelet Count 177 X10^3/uL (150-400); Red Blood Cell Count 4.21 X10^6/uL (4.5-5.9); Red Cell Distribution Width 14.1 % (11.6-14.8); White Blood Cell Count 3.7 X10^3/uL (4.5-11.0)
[2023-06-04 19:16] LABS: Acetaminophen < 10 ug/mL (10-30); Alanine Aminotransferase 67 IU/L (<50); Albumin 4.4 g/dL (3.5-5.0); Albumin Globulin Ratio 1.5 (1.0-2.8); Alkaline Phosphatase 107 U/L (38-126); Aspartate Aminotransferase 77 IU/L (17-59); Bilirubin Total 0.7 mg/dL (0.2-1.3); Blood Urea Nitrogen 13 mg/dL (9-20); Carbon Dioxide 23 mmol/L (22-32); Chloride 106 mmol/L (98-107); Estimated Glomerular Filt Rate > 60 mL/min (>60); Ethanol (ETOH) 192 mg/dL; Glucose 87 mg/dL (80-110); HEMOLYSIS < 15 (0-50); Lipase 71 U/L (23-300); Potassium 3.7 mmol/L (3.4-5.1); Salicylate < 1.0 mg/dL (<20); Sodium 141 mmol/L (137-145); Total Protein 7.4 g/dL (6.3-8.2)
[2023-06-04 19:17] LABS: Magnesium 1.7 mg/dL (1.6-2.3)
--- NOTE | 2023-06-04 19:27 | ED.NEUROSD ---
HPI - Neuro Symptoms/Deficit General Chief Complaint: Neuro Symptoms/Deficit Stated Complaint: Mental health Time Seen by Provider: 06/04/23 18:38 Limitations: altered mental status History of Present Illness HPI Narrative: Patient is a 67-year-old male. I am unsure as to exactly how he arrived here in the emergency department. He did not arrived by EMS. There was some reports he arrived by police. Unsure as to why he is here. Patient is unable to provide any HPI. He either does not answer questions or his nonsensical when answering questions. Is very tangential. Is calm. Has no signs of trauma. Unsure if the patient has taken any illicit substances. Related Data Home Medications Medication Instructions Recorded Confirmed melatonin 3 mg tablet 3 mg PO HS ##0 07/13/17 11/04/21 Previous Rx's Medication Instructions Recorded lorazepam 1 mg tablet (Ativan) 1 mg PO BID PRN agitation #10 tabs 08/31/21 bupropion HCl 100 mg tablet,12 hr 100 mg PO BID #180 tabs 11/04/21 sustained-release divalproex 250 mg tablet,delayed 250 mg PO DAILY #30 tabs 11/04/21 release omeprazole 20 mg capsule,delayed 20 mg PO DAILY #90 caps 11/04/21 release simvastatin 40 mg tablet 40 mg PO DAILY #90 tabs 04/03/22 quetiapine 25 mg tablet 25 mg PO BID #60 tabs 05/21/22 losartan 50 mg tablet See Rx Instructions .Route 10/30/22 .COMPLEX #90 tabs carvedilol 12.5 mg tablet See Rx Instructions .Route 05/13/23 .COMPLEX #30 tabs Allergies Allergy/AdvReac Type Severity Reaction Status Date / Time No Known Drug Allergies Allergy Verified 06/04/23 18:17 Review of Systems Review of Systems ROS Unobtainable: Unobtainable due to mental condition Patient History Medical History Alcohol use disorder Flood esophagus Bipolar 1 disorder Coronary artery disease Depression Hyperlipidemia Hypertension Preventative health care Right inguinal hernia Well adult Surgical History Status post hernia repair Family History Brother Hypertension Social History household members: friend(s) Smoking Status: Former smoker alcohol intake: former substance use type: does not use Smoking Status: Former smoker alcohol intake frequency: a few times a week Substance Use Type: does not use Exam Initial Vital Signs Initial Vital Signs: Vital Signs Temperature 97.8 F 06/04/23 18:15 Pulse Rate 120 H 06/04/23 18:15 Respiratory Rate 15 06/04/23 18:15 Blood Pressure 159/98 H 06/04/23 18:15 Pulse Oximetry 98 06/04/23 18:15 Oxygen Delivery Method Room Air 06/04/23 18:15 HENMT Head: normal to inspection and normocephalic Resp Effort & Inspection: normal respiratory effort Auscultation: clear to auscultation bilaterally Cardio Rate: regular rate Rhythm: regular rhythm GI Inspection: normal to inspection Skin General: no rashes or lesions noted Neuro Gait: normal gait Other: The patient is providing nonsensical answers however the words he does a are clear. Extrem General: normal to inspection and capillary refill normal Psych Other: Patient is calm. Is not alert to person or place. Can not answer questions Course Orders Ordered: ED Orders 06/05/23 02:18 ETOH [Ethanol (ETOH)] Stat Discontinued Medications Thiamine HCl 200 mg/ Sodium (Chloride) 102 mls @ 408 mls/hr IV NOW ONE Stop: 06/04/23 19:54 Last Infusion: 06/04/23 20:33 Dose: 0 mls/hr Documented By: Admin: 06/04/23 20:12 Dose: 408 mls/hr Documented By: SRAVAN Olanzapine (Olanzapine Odt 10 Mg Tab) 10 mg PO NOW ONE Stop: 06/05/23 01:41 Vital Signs Vital signs: Vital Signs - 8 hr 06/04/23 23:00 06/04/23 23:30 06/05/23 00:00 Pulse Rate 80 70 66 Respiratory Rate 22 Blood Pressure Pulse Oximetry 98 96 97 Oxygen Delivery Method Room Air Room Air Room Air 06/05/23 00:23 06/05/23 00:58 06/05/23 05:37 Pulse Rate 67 Respiratory Rate 20 18 Blood Pressure 179/95 H 168/106 H Pulse Oximetry Oxygen Delivery Method 06/05/23 05:41 06/05/23 05:38 06/05/23 05:38 Pulse Rate 86 84 Respiratory Rate Blood Pressure 168/106 H Pulse Oximetry 100 100 Oxygen Delivery Method Room Air Room Air MDM - Neuro Symptoms/Deficit Medical Records Attestation: I reviewed the patient's medical records. Lab Data Attestation: I reviewed the patient's lab results. 06/04/23 18:41 06/04/23 18:41 Labs: Lab Results 06/04/23 06/04/23 06/04/23 Range/Units 18:41 18:41 18:41 WBC 3.7 L (4.5-11.0) X10^3/uL RBC 4.21 L (4.5-5.9) X10^6/uL Hgb 13.4 L (13.5-17.5) g/dL Hct 39.1 L (41-53) % MCV 92.8 (80-100) fL MCH 31.9 (26-34) PG MCHC 34.3 (30-36) % RDW 14.1 (11.6-14.8) % Plt Count 177 (150-400) X10^3/uL Neut % (Auto) 58.4 (50-75) % Lymph % (Auto) 29.8 (25-40) % Burleigh % (Auto) 9.3 (3-14) % Eos % (Auto) 1.3 L (2-4) % Baso % (Auto) 1.2 (0-2) % Neut # (Auto) 2200 (8317-1214) /uL Lymph # (Auto) 1100 (5657-4952) /uL Burleigh # (Auto) 300 (0-900) /uL Eos # (Auto) 0 (0-450) /uL Baso # (Auto) 0 (0-100) /uL Sodium 141 (137-145) mmol/L Potassium 3.7 (3.4-5.1) mmol/L Chloride 106 (98-107) mmol/L Carbon Dioxide 23 (22-32) mmol/L BUN 13 (9-20) mg/dL Creatinine 0.59 L (0.66-1.25) mg/dL Estimated GFR > 60 (>60) mL/min BUN/Creatinine Ratio 22.0 (6-22) Glucose 87 (80-110) mg/dL Calcium 9.0 (8.4-10.2) mg/dL Magnesium (1.6-2.3) mg/dL Total Bilirubin 0.7 (0.2-1.3) mg/dL AST 77 H (17-59) IU/L ALT 67 H (<50) IU/L Alkaline Phosphatase 107 (38-126) U/L Total Protein 7.4 (6.3-8.2) g/dL Albumin 4.4 (3.5-5.0) g/dL Globulin 3.0 (1.7-4.1) g/dL Albumin/Globulin Ratio 1.5 (1.0-2.8) Lipase 71 (23-300) U/L TSH 0.726 (0.47-4.68) uIU/mL Salicylates < 1.0 (<20) mg/dL Acetaminophen < 10 (10-30) ug/mL Ethyl Alcohol 192 H ( - 10) mg/dL 06/04/23 06/05/23 Range/Units 18:41 02:18 WBC (4.5-11.0) X10^3/uL RBC (4.5-5.9) X10^6/uL Hgb (13.5-17.5) g/dL Hct (41-53) % MCV (80-100) fL MCH (26-34) PG MCHC (30-36) % RDW (11.6-14.8) % Plt Count (150-400) X10^3/uL Neut % (Auto) (50-75) % Lymph % (Auto) (25-40) % Burleigh % (Auto) (3-14) % Eos % (Auto) (2-4) % Baso % (Auto) (0-2) % Neut # (Auto) (8208-9994) /uL Lymph # (Auto) (3615-1917) /uL Burleigh # (Auto) (0-900) /uL Eos # (Auto) (0-450) /uL Baso # (Auto) (0-100) /uL Sodium (137-145) mmol/L Potassium (3.4-5.1) mmol/L Chloride (98-107) mmol/L Carbon Dioxide (22-32) mmol/L BUN (9-20) mg/dL Creatinine (0.66-1.25) mg/dL Estimated GFR (>60) mL/min BUN/Creatinine Ratio (6-22) Glucose (80-110) mg/dL Calcium (8.4-10.2) mg/dL Magnesium 1.7 (1.6-2.3) mg/dL Total Bilirubin (0.2-1.3) mg/dL AST (17-59) IU/L ALT (<50) IU/L Alkaline Phosphatase (38-126) U/L Total Protein (6.3-8.2) g/dL Albumin (3.5-5.0) g/dL Globulin (1.7-4.1) g/dL Albumin/Globulin Ratio (1.0-2.8) Lipase (23-300) U/L TSH (0.47-4.68) uIU/mL Salicylates (<20) mg/dL Acetaminophen (10-30) ug/mL Ethyl Alcohol 37 H ( - 10) mg/dL Imaging Data CT scan - head: Radiologist's Impression: PROCEDURE:? CT HEAD/BRAIN WO CON ? INDICATIONS:? AMS ? TECHNIQUE:? Noncontrast 4.5 mm thick angled axial sections acquired from the foramen magnum to the vertex, with coronal and sagittal reformats.? For radiation dose reduction, the following was used:? automated exposure control, adjustment of mA and/or kV according to patient size.? ? COMPARISON:? None. ? FINDINGS:? ? CSF spaces:? Basal cisterns are patent.? No extra-axial fluid collections.? The ventricles are symmetric in size and shape.? ? Brain:? No intracranial bleeds or masses.? There is cerebral volume loss for age, with resultant ventricular and sulcal prominence.? There are periventricular and deep white matter chronic small vessel ischemic changes.? There is intracranial internal carotid artery atherosclerosis.? ? Skull and face:? Calvarium and visualized facial bones appear intact, without suspicious lesions.? ? Sinuses:? Visualized sinuses and mastoids are clear.? ? IMPRESSION:? No intracranial hemorrhage or other acute intracranial abnormality. MDM Narrative Medical decision making narrative: Review the patient's record shows that several years ago he presented here to the emergency department very similar to what who presents like today. His medical record does have a history of bipolar disorder. It appears that he has had issues with psychosis in the past. Patient also apparently has a history of alcohol abuse. Nursing staff was able to get in contact with the patient's primary doctor who states that his presentation today is either because he is having a psychotic episode has not been on any of his medications or potentially has been abusing alcohol or potentially both. Patient has been calm however has been unable to provide any answers. Any questions that we ask him he answers either at a nonsensical wire does not answer at all. He has ambulated several times to the bathroom and does appear to be stable on his feet. There is no signs of any trauma. Patient is medically cleared. DCR has been contacted and has interviewed the patient and will detain patient. Care turned over to day provider to continue to observe until disposition. Discharge Plan Departure Patient Disposition: Xfer Psychiatric Hosp Prescriptions: No Action melatonin 3 MG tablet 3 mg PO HS Qty: 0 simvastatin 40 mg tablet 40 mg PO DAILY Qty: 90 1RF losartan 50 mg tablet See Rx Instructions .ROUTE .COMPLEX Qty: 90 1RF Dose Instruction: Take 1 tablet (50 mg) by mouth daily Rx Instructions: Take 1 tablet (50 mg) by mouth daily carvedilol 12.5 mg tablet See Rx Instructions .ROUTE .COMPLEX Qty: 30 0RF Dose Instruction: Take 1 tablet (12.5 mg) by mouth 2 times daily Rx Instructions: Take 1 tablet (12.5 mg) by mouth 2 times daily quetiapine 25 mg tablet 25 mg PO BID Qty: 60 2RF bupropion HCl 100 mg tablet sustained-release 12 hr 100 mg PO BID Qty: 180 1RF divalproex 250 mg tablet,delayed release (DR/EC) 250 mg PO DAILY Qty: 30 5RF omeprazole 20 mg capsule,delayed release(DR/EC) 20 mg PO DAILY Qty: 90 1RF lorazepam [Ativan] 1 mg tablet 1 mg PO BID PRN (Reason: agitation) Qty: 10 0RF Referrals: Johann Hess DO [Primary Care Provider] -
[2023-06-04 19:46] LABS: Thyroid Stimulating Hormone 0.726 uIU/mL (0.47-4.68)
[2023-06-04] MEDS: THIAMINE 200 MG in SODIUM CHLORIDE 0.9% 100 ML 408 MG IV (20:12)
[2023-06-05] VITALS (14 sets, daily range): BP systolic 160–180; BP diastolic 94–111; PULSE 49–119; RESP 18–22; O2SAT 93–100
[2023-06-05 02:38] LABS: Ethanol (ETOH) 37 mg/dL
--- NOTE | 2023-06-05 03:12 | PC.NURSE ---
This nurse provided patient with urinal and told patient he needs to provide a urine sample. Patient unable to follow directions and was confused as to what he needed to do. Speaking in incomprehensible sentences. Patient kept repeating [employer] underground monkey's. Able to follow simple instructions such as the nurse pointing to his room and lifting arm for blood pressure checks. Patient unable to leave 02 sats on and tele leads, takes them off even when asked to leave them on.
--- NOTE | 2023-06-05 04:55 | PC.NURSE ---
Walked patient to the bathroom. Urine hat provided for sample, patient did not pee. Patient still speaking in incomprehensible sentences.
--- NOTE | 2023-06-05 06:14 | PC.NURSE ---
DCR currently speaking to patient via zoom on tablet.
[2023-06-05 07:31] LABS: Appearance Urine UA CLEAR; Bilirubin Urine UA 1+ (NEGATIVE); Color Urine UA YELLOW; Glucose Urine UA NEGATIVE (Negative); Ketones Urine UA 3+ (NEGATIVE); Leukocyte Esterase Urine UA NEGATIVE (NEGATIVE); Nitrite Urine UA NEGATIVE (Negative); Occult Blood Urine UA NEGATIVE (Negative); Protein Urine UA TRACE (Negative)
[2023-06-05] MEDS: QUETIAPINE 25 MG TABLET PO (07:36)
[2023-06-05 07:37] LABS: UR Morphine/Opiate cutoff 300 Negative (Negative); Ur Creatinine Normal (Normal); Ur Specific Gravity Normal (Normal); Urine Amphetamines Negative (Negative); Urine Barbiturates Negative (Negative); Urine Benzodiazepines Negative (Negative); Urine Cocaine Negative (Negative); Urine MDMA Negative (Negative); Urine Methadone Negative (Negative); Urine Methamphetamines Negative (Negative); Urine Oxycodone Negative (Negative); Urine Phencyclidine Negative (Negative); Urine Tetrahydrocannabinol Negative (Negative); Urine Tricyclic Antidepressant Negative (Negative); Urine pH Normal (Normal)
--- NOTE | 2023-06-05 07:50 | PC.NURSE ---
Pt continues with word salad. He is alert and cooperative and is able to follow commands. Pt eating breakfast at this time.
[2023-06-05 08:05] LABS: Bacteria Urine Occasional (0-1); Ictotest Urine Negative (Negative); RBC Urine 1-5/HPF (0-5/HPF); Squamous Epithelial Cell Urine 0-1 /HPF (0-5/HPF); WBC Urine 1-5/HPF (0-5/HPF)
[2023-06-05 08:06] LABS: Culture Indicated Urine Cult Not Indicated; Mucus Urine 3+ (Negative)
--- NOTE | 2023-06-05 09:03 | PC.NURSE ---
DCR walk away d/t no beds available. They recommend trying to restart his home medications.
[2023-06-05] MEDS: diphenhydrAMINE 25 MG TABLET 50 MG PO (09:07)
[2023-06-05] MEDS: haloperidoL 5 MG TABLET PO (09:07)
[2023-06-05] MEDS: carvediloL 12.5 MG TABLET PO ×2 (09:51→19:15)
--- NOTE | 2023-06-05 11:56 | PC.NURSE ---
Pt sitting on stool outside room, talking to himself, staff, and patients passing by. Speech is incongruous and nonsensical. Pt is calm and follows direction. Meal tray provided and pt in room eating.
--- NOTE | 2023-06-05 13:17 | CM.SWNOTE ---
TRANSLITERATOR Assessment Patient is 67 y/o male who was brought into ED via LE last night, per charge rn there was no LE written or verbal report about patient's presentation to ED. Patient does not know why he is at ED and later states I was acting like a monkey carrying cannons. Patient presents with psychosis and as nonsensical. Per patient's PCP, patient has similar presentations when he does not take his medication. Patient has history of Bipolar and Alcohol use. Patient presents to ED with BAL of 192 upon arrival. Patient's recent and current CIWA is zero and most recent BAL at 2:08 AM is 37. Patient was evaluated by DCR Halle Tang early this morning and was a walk away, patient would have been detained if placement was found. TRANSLITERATOR enters room to meet with patient, patient is responsive to directions. Patient is A/O to self, person and place. Patient is not A/O to situation and presents with word salad and not able to answer questions directly. Patient speaks with rapid speech and is difficult to follow. When asked about SI and HI patient is not able to answer the question and states something about chelsea rene Patient endorses he lives in [place] and his roommate has been involuntary. 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 Patient endorses he does not have a psychiatrist and would like one, patient endorses he is prescribed medications from PCP Dr. Hess and has been asking for a psychiatrist. Patient cannot endorse what medications he is prescribed. Patient presents with several word salad questions How do...? and what happens...? Patient states he believes his phone will blow up. RN observes patient ask several questions that do not align with coherent conversation: Is soccer your favorite thing to eat? Everyone is immortal loaded with treasure It was almost capital, [facility] you should never kill anything bigger than your heart Everything that's alive is just a plant, which is garbage to carnivore TRANSLITERATOR reviews patient with ED provider, it the opinion of TRANSLITERATOR and ED provider that patient is gravely disabled and in need of and appropriate for inpatient hospitalization for safety and medication management. Patient is not coherent and able to make decisions and is appropriate for A[facility]LEE placement, TRANSLITERATOR to re-dispatch DCR upon hospital acceptance. Janett Olivarez, [employer] GAS COLLECTION OPERATOR
--- NOTE | 2023-06-05 17:13 | PC.NURSE ---
Pt remains calm and cooperative. Responds to attempts to communicate but with nonsensical word salad. Continues responding to internal stimuli. Meals, snacks, and beverages provided.
[2023-06-05 17:56] LABS: COVID19 -Nasal RAPID Negative (Negative)
[2023-06-05] MEDS: QUETIAPINE 25 MG TABLET 50 MG PO (19:15)
--- NOTE | 2023-06-05 19:16 | CM.SWNOTE ---
Addendum entered by Janett Olivarez 06/05/23 20:17: CLAM SHUCKER serves patient with ASHLEE detainment legal documentation via Ipad with RUBIO Bob present. YEISON Pack Original Note: CLAM SHUCKER Note CLAM SHUCKER calls several hospitals to seek A[facility]LEE bed for patient. [facility]- no beds [facility]-states they can review, request CIWA scores, CLAM SHUCKER faxes clinicals for review. [facility] later calls and states that their floor is too acute for patient. [facility]- does not accept DCR walkaways after 12 hours in ED [facility]- No ASHLEE beds [facility]- Left requesting return call [facility]-it is reported that they have beds, review patient, they decline due to their criteria [facility] beds [facility]- will have availability tomorrow AM [facility] - no beds [facility]- has beds, reviews patient and states they can accept once detainment paperwork is received. Patient has been accepted by Dr. Mendez, [facility], with ETA 2300 CLAM SHUCKER dispatches Paulino BERGERON is assigned, Paulino meets with patient via ipad and will write up detainment ppwk and fax it to [facility] and ED. CLAM SHUCKER calls [facility] and schedules EMS for 2129. At this time, ED is awaiting ASHLEE detainment paperwork. ED team to serve patient via phone or ipad with DCR present upon received fax. Plan: patient to transfer to [facility] for ASHLEE placement this evening. YEISON Pack
[2023-06-05] MEDS: HALOPERIDOL 5 MG/ML VIAL IM (20:34)
--- NOTE | 2023-06-05 20:54 | PC.NURSE ---
Following meeting with DCR, pt puts on jacket, states multiple times that he has been misdiagnosed and needs a psychiatrist, that he has his keys and has the right to go home. Pt is encouraged by staff to stay. 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 Pt paces around room, into cross, and up to nurses' station. Pt cooperates with requests but continues to state that he's going to leave and no one can lock me up. Pt takes small steps toward exit many times but is redirectable. Pt agrees to IM Haldol medication. Following administration, pt sits in his chair and writes copious notes on provided paper.
--- NOTE | 2023-06-05 22:09 | PC.NURSE ---
Called report to KARLI Cowart
--- NOTE | 2023-06-05 22:24 | PC.NURSE ---
Pt was alert and cooperated fully with staff and EMS on departure. Denies pain, discomfort or any concerning symptoms. Speech is incongruous. Pt took personal belongings on his person and his DCR paperwork with him.
== END 2023-06-05 22:20 ==
PROVIDERS: Emergency Medicine; Emergency Provider Emergency Medicine; Family Provider Family Medicine; PCP Family Medicine
DX: F23 Brief psychotic disorder (principal); R41.82 Altered mental status, unspecified; Z20.822 Contact with and (suspected) exposure to COVID-19
CPT/HCPCS: 36415; 70450; 80053; 80305; 80320; 80329; 81001; 83690; 83735; 84443; 85025; 87635; 96372; 99285; C9803; G0480; J1630

== ENCOUNTER → 2023-11-05 08:06 | Outpatient (CLI) | payer SELFPAY ==
[2023-11-05 09:20] LABS: Add Manual Diff / Slide Review NO; Basophils Absolute Auto 100 /uL (0-100); Eosinophils Absolute Auto 500 /uL (0-450); Hematocrit 38.2 % (41-53); Lymphocytes Absolute Auto 1200 /uL (1100-4500); Lymphocytes Percent Auto 15.1 % (25-40); Mean Corpuscular HGB Conc 34.1 % (30-36); Mean Corpuscular Hemoglobin 31.9 PG (26-34); Mean Corpuscular Volume 93.7 fL (80-100); Monocytes Absolute Auto 1300 /uL (0-900); Monocytes Percent Auto 16.7 % (3-14); Neutrophils Absolute Auto 4800 /uL (1500-7000); Neutrophils Percent Auto 61.2 % (50-75); Platelet Count 214 X10^3/uL (150-400); Red Blood Cell Count 4.08 X10^6/uL (4.5-5.9); White Blood Cell Count 7.8 X10^3/uL (4.5-11.0)
[2023-11-05 09:56] LABS: Alanine Aminotransferase 21 IU/L (<50); Albumin 4.1 g/dL (3.5-5.0); Albumin Globulin Ratio 1.5 (1.0-2.8); Alkaline Phosphatase 55 U/L (38-126); Aspartate Aminotransferase 26 IU/L (17-59); BUN Creatinine Ratio 29.8 (6-22); Bilirubin Total 0.4 mg/dL (0.2-1.3); Blood Urea Nitrogen 17 mg/dL (9-20); Calcium 9.5 mg/dL (8.4-10.2); Carbon Dioxide 27 mmol/L (22-32); Chloride 103 mmol/L (98-107); Estimated Glomerular Filt Rate > 60 mL/min (>60); Globulin 2.7 g/dL (1.7-4.1); Glucose 90 mg/dL (80-110); HEMOLYSIS < 15 (0-50); Potassium 4.5 mmol/L (3.4-5.1); Sodium 136 mmol/L (137-145); Total Protein 6.8 g/dL (6.3-8.2)
[2023-11-05 10:11] LABS: TSH w/ Reflex to FT4 2.21 uIU/mL (0.47-4.68)
[2023-11-06 04:27] LABS: Valproic Acid (Depakene) Total 27 ug/mL (50-100)
== END ==
PROVIDERS: Family Provider Family Medicine; PCP Family Medicine; Referring Provider Psychiatry & Neurology Psychiatry; Visit Provider Psychiatry & Neurology Psychiatry
DX: F31.2 Bipolar disorder, current episode manic severe with psychotic features (principal); Z79.899 Other long term (current) drug therapy
CPT/HCPCS: 36415; 80053; 80164; 84443; 85025

== ENCOUNTER → 2023-12-10 17:40 | Outpatient (CLI) | payer OTHER, SELFPAY ==
[2023-12-12 03:36] LABS: Valproic Acid (Depakene) Total 28 ug/mL (50-100)
== END ==
PROVIDERS: Family Provider Family Medicine; PCP Family Medicine; Referring Provider Psychiatry & Neurology Psychiatry; Visit Provider Psychiatry & Neurology Psychiatry
DX: F31.2 Bipolar disorder, current episode manic severe with psychotic features (principal); Z79.899 Other long term (current) drug therapy
CPT/HCPCS: 36415; 80164

== ENCOUNTER → 2023-12-16 08:31 | Outpatient (CLI) | payer OTHER, SELFPAY ==
[2023-12-17 04:54] LABS: Valproic Acid (Depakene) Total 37 ug/mL (50-100)
== END ==
PROVIDERS: Family Provider Family Medicine; PCP Family Medicine; Referring Provider Psychiatry & Neurology Psychiatry; Visit Provider Psychiatry & Neurology Psychiatry
DX: F31.9 Bipolar disorder, unspecified (principal); Z79.899 Other long term (current) drug therapy
CPT/HCPCS: 36415; 80164

== ENCOUNTER → 2025-02-13 06:37 | Outpatient (CLI) | payer BC, SELFPAY ==
[2025-02-13 08:03] LABS: Add Manual Diff / Slide Review NO; Basophils Absolute Auto 100 /uL (0-100); Basophils Percent Auto 1.4 % (0-2); Eosinophils Absolute Auto 200 /uL (0-450); Eosinophils Percent Auto 2.9 % (2-4); Hematocrit 37.7 % (41-53); Hemoglobin 12.6 g/dL (13.5-17.5); Lymphocytes Absolute Auto 1400 /uL (1100-4500); Lymphocytes Percent Auto 21.4 % (25-40); Mean Corpuscular HGB Conc 33.5 % (30-36); Mean Corpuscular Hemoglobin 31.4 PG (26-34); Mean Corpuscular Volume 93.9 fL (80-100); Monocytes Absolute Auto 900 /uL (0-900); Monocytes Percent Auto 13.8 % (3-14); Neutrophils Absolute Auto 3800 /uL (1500-7000); Neutrophils Percent Auto 60.5 % (50-75); Platelet Count 304 X10^3/uL (150-400); Red Blood Cell Count 4.02 X10^6/uL (4.5-5.9); Red Cell Distribution Width 14.1 % (11.6-14.8); White Blood Cell Count 6.3 X10^3/uL (4.5-11.0)
[2025-02-13 08:18] LABS: Alanine Aminotransferase 21 IU/L (<50); Albumin Globulin Ratio 1.6 (1.0-2.8); Alkaline Phosphatase 51 U/L (38-126); Aspartate Aminotransferase 25 IU/L (17-59); BUN Creatinine Ratio 19.7 (6-22); Bilirubin Total 0.4 mg/dL (0.2-1.3); Blood Urea Nitrogen 14 mg/dL (9-20); Calcium 9.4 mg/dL (8.4-10.2); Carbon Dioxide 24 mmol/L (22-32); Chloride 105 mmol/L (98-107); Cholesterol 141 mg/dL (140-199); Estimated Glomerular Filt Rate > 60 mL/min (>60); Globulin 2.5 g/dL (1.7-4.1); Glucose 93 mg/dL (80-110); HDL Cholesterol 47 mg/dL (40-60); HEMOLYSIS < 15 (0-50); LDL Cholesterol Calculated 75 mg/dL (<100); Potassium 4.4 mmol/L (3.4-5.1); Sodium 138 mmol/L (137-145); Total Protein 6.5 g/dL (6.3-8.2); Triglycerides 96 mg/dL (35-150)
[2025-02-13 08:50] LABS: Prostate Specific Antigen Scrn 0.436 ng/mL (0.1-4.0)
[2025-02-13 09:23] LABS: Folate 13.4 ng/mL (2.76-20.0)
[2025-02-14 00:41] LABS: Valproic Acid (Depakene) Total 65 ug/mL (50-100)
== END ==
PROVIDERS: PCP Family Medicine; Referring Provider Psychiatry & Neurology Psychiatry; Visit Provider Psychiatry & Neurology Psychiatry
DX: Z79.899 Other long term (current) drug therapy (principal); F31.9 Bipolar disorder, unspecified; F10.11 Alcohol abuse, in remission; Z12.5 Encounter for screening for malignant neoplasm of prostate
CPT/HCPCS: 36415; 80053; 80061; 80164; 82746; 84443; 85025; G0103